=== PATIENT | female | born 1960 | race Caucasian/White ===

== ENCOUNTER 2016-09-02 15:39 | Emergency (ER) | payer BC ==
[2016-09-02] MEDS ORDERED: Sodium Chloride 0.9% 10 ML Syringe FLUSH PRN ×2 (15:56)
[2016-09-02] MEDS ORDERED: LORazepam 2 MG/ML MDV IVPUSH ONE (15:59)
--- NOTE | 2016-09-02 16:14 | EDM.PDOC ---
ED HPI NEURO - General Chief Complaint: Neuro Symptoms/Deficits Stated Complaint: SLURRED SPEECH,MEMORY LOSS Time Seen by Provider: 09/02/16 15:43 Source: Reports: Patient, Family, Old records, RN notes reviewed History Limitations: Reports: No limitations - History of Present Illness INITIAL COMMENTS - FREE TEXT/NARRATIVE: 56-year-old female presents to the emergency department today with difficulty finding words and slurred speech, she has had a known history of this for about 6 months has had extensive workup including multiple consultations with neurology, MRI and EEG as well as CAT scans and blood work have been performed the diagnosis has been conclusive thus far current working diagnosis from neurology last note on, 07/31/2016 is that this is a stress related anxiety component recommending consultation at the [facility] which they have an appointment for a second opinion. At this time she is severely agitated words are clear however it's difficult for her to smooth speech and nonpressured review of systems cannot be obtained the majority of this is taken from family and chart review - Related Data Allergies/ADRs: Allergies Allergy/AdvReac Type Severity Reaction Status Date / Time amoxicillin trihydrate Allergy Dizziness Verified 09/02/16 15:48 [From Augmentin] Latex, Natural Rubber Allergy Rash Verified 09/02/16 15:48 potassium clavulanate Allergy Dizziness Verified 09/02/16 15:48 [From Augmentin] hydromorphone AdvReac Intermediate Itching Verified 09/02/16 15:48 Home Meds: Home Meds Cetirizine HCl [Zyrtec] 10 mg PO ASDIRECTED 03/22/13 [History] Fluticasone Propionate 60 gm SUPRIYA DAILY 03/22/13 [History] Vit D3/Folic Acid/B2/B6/B12 [Folgard Tablet] 1 each PO DAILY 03/22/13 [History] Vitamin B Complex & Vit C No.4 [Super B Complex] 150 mg ORAL.INH DAILY 10/02/14 [History] FLUoxetine [PROzac] 20 mg PO DAILY 09/16/15 [History] Levothyroxine [Synthroid] 50 mcg PO ACBREAKFAST 09/16/15 [History] buPROPion HCl [Wellbutrin Xl] 150 mg PO DAILY 09/16/15 [History] Past Medical History HEENT History: Reports: Allergic rhinitis Respiratory History: Reports: Sleep apnea Other Respiratory History: environmental. 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 Psychiatric History: Reports: Depression Endocrine/Metabolic History: Reports: Obesity/BMI 30+ - Past Surgical History GI Surgical History: Reports: Cholecystectomy, Colon, Other (see below) Other GI Surgeries/Procedures: large tumor removal from belly Female Surgical History: Reports: Breast biopsy, section, Oophorectomy, Salpingo-oophorectomy, Tubal ligation Other Female Surgeries/Procedures: right ooph Social & Family History - Tobacco Use Smoking Status *Q: Never Smoker Second Hand Smoke Exposure: No - Alcohol Use Days Per Week of Alcohol Use: 0 - Recreational Drug Use Recreational Drug Use: No ED ROS GENERAL - Review of Systems Review Of Systems: Unable To Obtain ED EXAM, NEURO - Physical Exam Exam: See Below Text/Narrative:: General: Anxious female with pressured speech difficulty getting words out but when they do they are clear, alert and oriented x3 HEENT: head is atraumatic normocephalic, eyes pupils equal round reactive to light, sclera clear no conjunctivitis appreciated. Ears tympanic membranes clear and waite landmarks and light reflex are present bilaterally canals are clear. Nose no septal deviation, nares are clear, no blood present. Mouth mucosa is moist and pink no erythema or exudate noted in soft palate, tongue is midline uvula is midline , dentition is intact. Neck: Supple no thyromegaly no tracheal deviation. Nodes: Cervical nodes subclavicular nodes nontender no palpable lymphadenopathy noted. Lungs: clear to auscultation bilaterally with symmetrical respirations, no adventitious noise appreciated. CV: Regular rate and rhythm S1 and S2 appreciated no murmurs rubs or gallops noted. Abdomen: Soft, nontender, no palpable masses or organomegaly appreciated, no distention no guarding bowel sounds are present, . Neuro: Cranial nerves II through XII grossly intact moves all extremities without difficulty Skin: Warm and dry, intact Extremities: No lower extremity edema appreciated, Course - Vital Signs Last Recorded V/S: Last Vital Signs Temp 97.6 F 09/02/16 15:40 Pulse 110 H 09/02/16 16:40 Resp 16 09/02/16 16:20 BP 129/91 H 09/02/16 16:40 Pulse Ox 98 09/02/16 16:40 - Orders/Labs/Meds Orders: Active Orders 24 hr Category Date Time Status EKG Documentation Completion [RC] ASDIRECTED Care 09/02/16 15:58 Active Peripheral IV Care [RC] . DIRECTED Care 09/02/16 15:57 Active DRUG SCREEN, URINE [URCHEM] Stat Lab 09/02/16 15:59 Uncollected UA W/MICROSCOPIC [URIN] Urgent Lab 09/02/16 15:56 Uncollected Sodium Chloride 0.9% [Saline Flush] Med 09/02/16 15:56 Active 10 ml FLUSH ASDIRECTED PRN Sodium Chloride 0.9% [Saline Flush] Med 09/02/16 15:56 Active 10 ml FLUSH ASDIRECTED PRN Peripheral IV Insertion Adult [OM.PC] Urgent Oth 09/02/16 15:56 Ordered EKG 12 Lead [EK] Urgent Ther 09/02/16 15:56 Ordered Medication Orders Sodium Chloride (Saline Flush) 10 ml FLUSH ASDIRECTED PRN PRN Reason: Keep Vein Open Last Admin: 09/02/16 16:14 Dose: 10 ml Sodium Chloride (Saline Flush) 10 ml FLUSH ASDIRECTED PRN PRN Reason: Keep Vein Open Last Admin: 09/02/16 16:14 Dose: 10 ml Labs: Laboratory Tests 09/02/16 09/02/16 09/02/16 Range/Units 16:05 16:05 16:05 WBC 7.7 (4.5-11.0) K/uL RBC 4.34 (3.30-5.50) M/uL Hgb 15.7 H D (12.0-15.0) g/dL Hct 44.9 (36.0-48.0) % MCV 104 H (80-98) fL MCH 36 H (27-31) pg MCHC 35 (32-36) % Plt Count 296 (150-400) K/uL Neut % (Auto) 55 (36-66) % Lymph % (Auto) 33 (24-44) % [place] % (Auto) 12 H (2-6) % Eos % (Auto) 1 L (2-4) % Baso % (Auto) 1 (0-1) % PT 11.0 (9.5-12.0) sec INR 1.04 (0.80-1.20) Sodium 145 (140-148) mmol/L Potassium 4.0 (3.6-5.2) mmol/L Chloride 108 (100-108) mmol/L Carbon Dioxide 12 L (21-32) mmol/L Anion Gap 29.0 H (5.0-14.0) mmol/L BUN 7 (7-18) mg/dL Creatinine 0.9 (0.6-1.0) mg/dL Est Cr Clr Drug Dosing 52.10 mL/min Estimated GFR (MDRD) > 60 (>60) Glucose 85 (74-106) mg/dL Calcium 9.0 (8.5-10.1) mg/dL Total Bilirubin 1.2 H D (0.2-1.0) mg/dL AST 50 H (15-37) U/L ALT 99 H (12-78) U/L Alkaline Phosphatase 83 (46-116) U/L Total Protein 8.3 H (6.4-8.2) g/dL Albumin 4.1 (3.4-5.0) g/dL Globulin 4.2 H (2.3-3.5) g/dL Albumin/Globulin Ratio 1.0 L (1.2-2.2) Meds: Medications Generic Name Dose Route Start Last Admin Trade Name Freq PRN Reason Stop Dose Admin Sodium Chloride 10 ml 09/02/16 15:56 09/02/16 16:14 Saline Flush FLUSH 10 ml ASDIRECTED PRN Administration Keep Vein Open Sodium Chloride 10 ml 09/02/16 15:56 09/02/16 16:14 Saline Flush FLUSH 10 ml ASDIRECTED PRN Administration Keep Vein Open Discontinued Medications Generic Name Dose Route Start Last Admin Trade Name Freq PRN Reason Stop Dose Admin Lorazepam 1 mg 09/02/16 15:59 09/02/16 16:13 Ativan IVPUSH 09/02/16 16:00 1 mg ONETIME ONE Administration Departure - Departure Time of Disposition: 17:53 Disposition: Home, Self-Care 01 Condition: fair Clinical Impression: Slurred speech Forms: ED Department Discharge Additional Instructions: Use Ativan as needed for symptomatic relief, please keep your appointment at the [facility] for second opinion from neurology, call or return to the emergency department worsening of symptoms - My Orders Last 24 Hours: My Active Orders 09/02/16 15:56 UA W/MICROSCOPIC [URIN] Urgent Sodium Chloride 0.9% [Saline Flush] 10 ml FLUSH ASDIRECTED PRN Sodium Chloride 0.9% [Saline Flush] 10 ml FLUSH ASDIRECTED PRN Peripheral IV Insertion Adult [OM.PC] Urgent EKG 12 Lead [EK] Urgent 09/02/16 15:57 Peripheral IV Care [RC] . DIRECTED 09/02/16 15:58 EKG Documentation Completion [RC] ASDIRECTED 09/02/16 15:59 DRUG SCREEN, URINE [URCHEM] Stat - Assessment/Plan Last 24 Hours: My Active Orders 09/02/16 15:56 UA W/MICROSCOPIC [URIN] Urgent Sodium Chloride 0.9% [Saline Flush] 10 ml FLUSH ASDIRECTED PRN Sodium Chloride 0.9% [Saline Flush] 10 ml FLUSH ASDIRECTED PRN Peripheral IV Insertion Adult [OM.PC] Urgent EKG 12 Lead [EK] Urgent 09/02/16 15:57 Peripheral IV Care [RC] . DIRECTED 09/02/16 15:58 EKG Documentation Completion [RC] ASDIRECTED 09/02/16 15:59 DRUG SCREEN, URINE [URCHEM] Stat Plan: Assessment Acuity = chronic Site and laterality = episodes of slurred speech Etiology = unclear etiology possibly related to anxiety component Manifestations = none Location of injury = home Lab values = CBC unremarkable, total bilirubin elevated 1.2 consistent hyperbilirubinemia AST elevated at 50 ALT elevated at 99 consistent elevated liver enzymes, EKG demonstrates a normal sinus rhythm Plan I did review lab work with her elevated liver enzymes are not new she had good relief with 1 mg Ativan provided I did write a prescription for total of 10 tablets she does admit to being under a lot of stress with recent move from her home, she does have followup appointment with neurology for second opinion at the [facility] Patient was in agreement with the plan all questions were answered, they were instructed to return to the emergency department or call for worsening symptoms. This note was dictated using Nubli voice recognition software please call with any questions.
[2016-09-02 17:03] VITALS: BP 129/91
== END 2016-09-02 18:10 | disposition home or self-care (01) ==
LOC: JP.ED 15:39
DX: R47.81 Slurred speech (principal); E66.9 Obesity, unspecified; Z68.32 Body mass index [BMI] 32.0-32.9, adult; Z90.49 Acquired absence of other specified parts of digestive tract; Z98.51 Tubal ligation status; Z98.890 Other specified postprocedural states; Z79.899 Other long term (current) drug therapy; Z88.1 Allergy status to other antibiotic agents; Z88.5 Allergy status to narcotic agent; Z91.040 Latex allergy status
CPT/HCPCS: 36415; 80053; 85025; 85610; 93005; 96374; 99285; J2060; J7050

== ENCOUNTER 2016-10-12 06:23 | Inpatient (IN) | payer BC ==
[2016-10-12] MEDS ORDERED: fentaNYL 25 MCG/HR Transdermal Patch TRDERM SCH (07:00)
[2016-10-12] MEDS: Dextrose 5%-Lactated Ringers 1,000 ML IV SCH ×2 (07:40→22:20)
[2016-10-12] MEDS ORDERED: Naloxone 0.4 MG/ML SDV IVPUSH PRN (08:30)
[2016-10-12] MEDS ORDERED: HYDROmorphone/Normal Saline 15 MG/30 ML PCA IV PRN (08:30)
[2016-10-12] MEDS ORDERED: Meropenem 500 MG SDV ONE (08:47)
[2016-10-12] MEDS ORDERED: Rocuronium 50 MG/5 ML Vial ONE ×2 (09:18→12:17)
[2016-10-12] MEDS ORDERED: Dexamethasone 4 MG/ML SDV ONE (09:18)
[2016-10-12] MEDS ORDERED: Neostigmine Methylsulfate 1 MG/ML 5 ML Syringe ONE (09:18)
[2016-10-12] MEDS ORDERED: Ondansetron 4 MG/2 ML SDV ONE (09:18)
[2016-10-12] MEDS ORDERED: fentaNYL 250 MCG/5 ML SDV ONE ×2 (09:18→11:39)
[2016-10-12] MEDS ORDERED: Midazolam 1 MG/ML 2 ML SDV ONE (09:18)
[2016-10-12] MEDS ORDERED: Propofol 200 MG/20 ML SDV ONE (09:18)
[2016-10-12] MEDS ORDERED: Succinylcholine/Normal Saline 200 MG/10 ML Syringe ONE (09:18)
[2016-10-12] MEDS ORDERED: Povidone-Iodine 10% Soln 118.25 ML Bottle ONE (09:22)
[2016-10-12] MEDS: Scopolamine 1.5 MG Transdermal Patch TRDERM SCH (10:23)
[2016-10-12] MEDS: cefOXitin 2 GM in Sodium Chloride 0.9% 50 ML IV ONE ×2 (10:23→15:14)
[2016-10-12] MEDS ORDERED: Lactated Ringers 1,000 ML ONE (11:02)
[2016-10-12] MEDS ORDERED: Linezolid 200 MG/100 ML Bag IRR ONE ×2 (11:11→11:15)
[2016-10-12] MEDS ORDERED: hydrOXYzine HCl 50 MG/ML SDV IM PRN (15:01)
[2016-10-12] MEDS ORDERED: hydrOXYzine HCl 25 MG Tab PO PRN (15:01)
[2016-10-12] MEDS: Cyclobenzaprine 10 MG Tab PO PRN (15:13)
[2016-10-12] MEDS ORDERED: Ondansetron 4 MG/2 ML SDV IVPUSH PRN (15:27)
[2016-10-12] MEDS ORDERED: Cetirizine 10 MG Tab PO ONE (16:30)
[2016-10-12] MEDS: Magnesium Sulfate/Water 2 GM in Premix Bag 1 BAG IV SCH ×2 (16:42→22:21)
[2016-10-12] MEDS: ceFAZolin 2 GM in Sodium Chloride 0.9% 50 ML IV SCH ×2 (16:42→23:40)
[2016-10-12] MEDS: diphenhydrAMINE 50 MG/ML SDV IVPUSH PRN (20:21)
[2016-10-13] MEDS: diphenhydrAMINE 50 MG/ML SDV IVPUSH PRN ×3 (01:44→14:09)
[2016-10-13] MEDS: Magnesium Sulfate/Water 2 GM in Premix Bag 1 BAG IV SCH ×4 (04:44→22:25)
[2016-10-13] MEDS: Dextrose 5%-Lactated Ringers 1,000 ML IV SCH ×2 (05:29→13:59)
[2016-10-13] MEDS: Cyclobenzaprine 10 MG Tab PO PRN ×2 (07:05→15:59)
[2016-10-13] MEDS: Pantoprazole 40 MG Tab.CR PO SCH (07:18)
[2016-10-13] MEDS: Levothyroxine 75 MCG Tab PO SCH (07:18)
[2016-10-13] MEDS: ceFAZolin 2 GM in Sodium Chloride 0.9% 50 ML IV SCH (07:33)
--- NOTE | 2016-10-13 08:20 | PN ---
DATE OF SERVICE: 10/13/2016 SUBJECTIVE: Beatrice is postop day #1. She states her pain is controlled. She is having muscle spasms in her left upper quadrant. Siu was discontinued. She has itching all over without rash. REVIEW OF SYSTEMS: Remainder of review of systems negative for any pertinent positives and negatives. OBJECTIVE: GENERAL: Beatrice is a 56-year-old female. She is alert and orientated. VITAL SIGNS: TPR is 98.1, 118, 14, blood pressure 114/75. HEENT: Negative. NECK: Supple. HEART: Regular rate and rhythm. LUNGS: Clear. ABDOMEN: Dressings dry and intact. Abdominal binder is on. EXTREMITIES: Without peripheral edema. ASSESSMENT: 1. 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 2. Excision of nodule gastric mesentry and placement of Interceed mesh for recurrent desmoid tumor, gastric mesentery, and probable new primary desmoid tumor mesenteric layer, left upper abdominal wall. Size of Interceed mesh, 5 inches x 6 inches. Date of surgery 10/12/2016. PLAN: 1. Step-4 gastric bypass diet. 2. Decrease IV to 100 mL per hour. 3. Dressing off, may shower. 4. 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 Rx Dilaudid 2 mg 1 to 2 q.4 hours p.r.n. pain, p.o. Lomotil, and KCl was restarted per her home medications. 5. We will evaluate p.r.n. or in a.m. Katie Ann PA-C /[id number]
[2016-10-13] MEDS ORDERED: FENTANYL PATCH CHECK TOP SCH ×2 (09:00)
[2016-10-13] MEDS ORDERED: POTASSIUM CHLORIDE 40 MEQ PO SCH (09:00)
[2016-10-13] MEDS: Potassium Chloride 20 MEQ Tab.ER PO SCH (09:32)
[2016-10-13] MEDS: FLUoxetine 20 MG Cap PO SCH (09:32)
[2016-10-13] MEDS: Cetirizine 10 MG Tab PO SCH (09:33)
[2016-10-13] MEDS: FENTANYL PATCH CHECK TOP SCH ×2 (09:34→20:00)
[2016-10-13] MEDS: SCOPALAMINE PATCH CHECK TOP SCH (09:35)
[2016-10-13] MEDS: Atropine/Diphenoxylate 0.025-2.5 MG Tab PO SCH ×3 (09:37→20:00)
[2016-10-13] MEDS: HYDROmorphone 2 MG Tab PO PRN ×3 (09:41→17:48)
[2016-10-14] MEDS: Dextrose 5%-Lactated Ringers 1,000 ML IV SCH ×3 (00:07→20:39)
[2016-10-14] MEDS: diphenhydrAMINE 50 MG/ML SDV IVPUSH PRN (03:45)
[2016-10-14] MEDS: HYDROmorphone 2 MG Tab PO PRN ×3 (03:45→16:02)
[2016-10-14] MEDS: Magnesium Sulfate/Water 2 GM in Premix Bag 1 BAG IV SCH ×4 (04:28→22:15)
[2016-10-14] MEDS: Pantoprazole 40 MG Tab.CR PO SCH (07:17)
[2016-10-14] MEDS: Levothyroxine 75 MCG Tab PO SCH (07:17)
[2016-10-14] MEDS: Amylase/Lipase/Protease 12,000 Unit Cap.CR PO SCH ×3 (08:13→16:49)
[2016-10-14] MEDS: FENTANYL PATCH CHECK TOP SCH ×2 (08:14→20:41)
[2016-10-14] MEDS: Potassium Chloride 20 MEQ Tab.ER PO SCH (08:14)
[2016-10-14] MEDS: Atropine/Diphenoxylate 0.025-2.5 MG Tab PO SCH ×3 (08:14→20:41)
[2016-10-14] MEDS: SCOPALAMINE PATCH CHECK TOP SCH (08:15)
[2016-10-14] MEDS: Cetirizine 10 MG Tab PO SCH (08:15)
[2016-10-14] MEDS: FLUoxetine 20 MG Cap PO SCH (08:15)
--- NOTE | 2016-10-14 09:04 | PN ---
DATE OF SERVICE: 10/14/2016 SUBJECTIVE: Beatrice has had some tachycardia. Temp max 99.6. Pain has been controlled. She did have some urinary retention and Siu was replaced at 7 p.m. She has been up ambulating. Occasional confusion secondary to narcotic medications. REVIEW OF SYSTEMS: Remainder of review of systems was negative for any pertinent positives and negatives. OBJECTIVE: GENERAL: Beatrice Moody is a pleasant 56-year-old female. VITAL SIGNS: TPR is 99.4, 110, 16, blood pressure is 109/70 and recheck 155/89. HEENT: Negative. NECK: Supple. HEART: Apically, when first checked, her pulse rate was 180 to 200. It was checked for greater than a minute. Apical radial pulse was the same, it did go down to 113 to 114. Telemetry is on. She did have tachy initially with some PVCs and then it completely cleared where she remained tachycardic in the 110s to 114s. LUNGS: Clear. ABDOMEN: Dressings dry and intact. Siu catheter intact. She has had a total out of 1560 of a clear magdy urine. EXTREMITIES: SCDs are on. ASSESSMENT: 1. 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 2. Excision of nodule, gastric mesentery, and placement of Interceed mesh for recurrent desmoid tumor, gastric mesentery, and probable new primary desmoid tumor mesenteric layer, left upper abdominal wall. Size of Interceed mesh, 5 inches x 6 inches. Date of surgery 10/12/2016. PLAN: 1. Dressing off and may shower. 2. Telemetry for postop tachycardia, rule out any arrhythmia. 3. Discontinue Siu. 4. Continue good pulmonary toilet. 5. We will evaluate p.r.n. or in a.m. Katie Ann PA-C /[id number]
[2016-10-14] MEDS: Cyclobenzaprine 10 MG Tab PO PRN ×2 (11:41→17:14)
[2016-10-14] MEDS ORDERED: Dextrose 5%-Lactated Ringers 1,000 ML IV SCH (21:15)
[2016-10-14] MEDS: Acetaminophen 325 MG Tab PO SCH (21:46)
[2016-10-15] MEDS: Acetaminophen 325 MG Tab PO SCH ×2 (03:48→09:01)
[2016-10-15] MEDS: Magnesium Sulfate/Water 2 GM in Premix Bag 1 BAG IV SCH ×3 (04:38→11:05)
[2016-10-15] MEDS: Levothyroxine 75 MCG Tab PO SCH (07:17)
[2016-10-15] MEDS: Pantoprazole 40 MG Tab.CR PO SCH (07:17)
[2016-10-15] MEDS ORDERED: Magnesium Hydroxide 400 MG/5 ML Susp 30 ML Cup PO PRN (07:28)
[2016-10-15] MEDS: Cyclobenzaprine 10 MG Tab PO PRN (07:33)
[2016-10-15 07:40] VITALS: BP 111/72
[2016-10-15] MEDS: Potassium Chloride 20 MEQ Tab.ER PO SCH (08:58)
[2016-10-15] MEDS: Amylase/Lipase/Protease 12,000 Unit Cap.CR PO SCH (08:58)
[2016-10-15] MEDS: SCOPALAMINE PATCH CHECK TOP SCH (08:59)
[2016-10-15] MEDS: Atropine/Diphenoxylate 0.025-2.5 MG Tab PO SCH (08:59)
[2016-10-15] MEDS: Cetirizine 10 MG Tab PO SCH (09:01)
[2016-10-15] MEDS: FLUoxetine 20 MG Cap PO SCH (09:01)
[2016-10-15] MEDS: Scopolamine 1.5 MG Transdermal Patch TRDERM SCH (11:17)
--- NOTE | 2016-10-16 14:23 | DISCH ---
ADMISSION DIAGNOSES: Desmoid tumor of abdomen, short bowel syndrome, postoperative malabsorption, chronic headaches, depression, anxiety, sleep apnea, on CPAP, psychogenic nonepileptic seizure. DISCHARGE DIAGNOSES: 1. 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 2. Excision of nodule, gastric mesentery, and placement of Interceed mesh for recurrent desmoid tumor, gastric mesentery, and probable new desmoid tumor mesenteric layer, left upper abdominal wall. Size of Interceed mesh 5 inches x 6 inches. Date of surgery 10/12/2016. HISTORY: Beatrice is a 56-year-old female who had history of a desmoid tumor approximately 11 months ago. She had recurrence of the abdominal wall mass. After preoperative evaluation and discussion of possible risks and possible complications, she wished to proceed for surgical procedure. HOSPITAL COURSE: Beatrice had her surgery on 10/12/2016. She had no operative complications. On postop day #1, she was started on oral pain medication, irregular diet. On postop day #2, her activity was good, her appetite did start to return, and her vital signs remained stable. She did have one episode of tachycardia with rare PVCs and her fentanyl patch was discontinued and her pulse returned to normal limits. On postop day #3, her activity was good. Her pain was well managed. Vital signs stable and she was able to be discharged to home. PHYSICAL EXAMINATION: GENERAL: Beatrice is fairly 56-year-old female. She is alert, orientated. VITAL SIGNS: Height 5 feet 1 inch. Weight is 147. TPR is 98.2, 99, 18. Blood pressure is 111/72. HEENT: Negative. NECK: Supple. HEART: Regular rate and rhythm. LUNGS: Clear. ABDOMEN: Rizwan in place. In the superior part of the incision, she does have a ping-pong ball sized raised area that is firm. It is normal part of her anatomy and the abdomen is otherwise soft, minimally tender which would be expected. EXTREMITIES: Without peripheral edema. DISPOSITION: Discharged to home. CONDITION: Stable and improving. FOLLOWUP APPOINTMENT: Jermaine Lowry MD on 10/21/2016 at 9:00 a.m. HOME MEDICATIONS: Tylenol 650 mg q.6 hours scheduled for 2 weeks, Flexeril 10 mg q.8 hours p.r.n. muscle spasms #30, Dilaudid 2 mg 1 to 2 every 4 hours p.r.n. pain #30, fluoxetine 20 mg oral daily, levothyroxine 75 mcg oral before breakfast. Milk of magnesia 30 mL, two were sent home with patient to take 1 daily p.r.n. constipation. Creon one each oral 3 times daily, Zyrtec 10 mg oral daily. For allergies, vitamin B12 of 1000 mcg sublingual daily. Vitamin B12 of 500 mcg sublingual daily, Lomotil 1 tablet oral 3 times daily, probiotic one tablet oral daily, B-complex 150 mg oral daily, vitamin D 1 daily, potassium chloride 40 mEq oral daily, bupropion 75 mg oral twice daily. DIET AFTER DISCHARGE: Usual diet as tolerated. Drink 8 to 10 glasses of water a day. ACTIVITIES: No lifting greater than 10 pounds for 6 weeks. Other activity, walk inside your home 6 times daily, short distances. Driving, do not drive on pain medication. Shower bathing, may shower. Notify provider of fever, increased pain, nausea, or vomiting. Wound incision care, keep site clean and dry, wear abdominal binder for 6 weeks and then as tolerated. Special instruction; use incentive spirometer 10 times every hour while awake.
--- NOTE | 2016-11-04 07:34 | OR ---
DATE OF PROCEDURE: 10/12/2016 PREOPERATIVE DIAGNOSES: 1. 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 2. Recurrent desmoid tumor, gastric mesentery. 3. Possible tiny area of recurrent desmoid tumor involving nodular tissue, inferior aspect of the incision. OPERATIVE PROCEDURE: 1. Radical resection of abdominal wall desmoid left upper quadrant abdominal wall with mesh repair augmented by partial component separation of abdominal wall (13930). 2. Excision of combined nodules involving gastric mesentery (18072). 3. Excision of peritoneal nodule underlying inferior extent of incision (73136). 4. Placement of Interceed mesh to displace small bowel and other viscera away from pelvic and abdominal wall (13592). ANESTHESIA: General. CAN TECHNICIAN: Katie Ann PA-C. INDICATION: This is a 56-year-old female, a little over a year status post radical resection of the desmoid tumor involving small bowel mesentery with a small bowel resection. The patient is accommodated for GI tract satisfactorily at this point and recent followup exam showed a new rapidly enlarging mass in the left upper quadrant. A CT scan of this showed the mass to be lateral to the left rectus muscle and interestingly in a plane not at all violated by the original operation indicating this may very well be new primary desmoid tumor. Biopsies were obtained, which were consistent with desmoid tumor. The plan is to proceed with planned local excision of that area, but most likely mesh repair and augmented in all likelihood with partial component separation procedure is planned. In addition we'll do a general exploration to rule out any additional possible recurrent tumors. Potential risks including bleeding, infection, injury to underlying viscera, possible need for additional bowel resection, need for long-term IV hyperalimentation. Possible recurrence of the problem overtime as well as possibility of cardiopulmonary, septic, or hemorrhagic complications leading to and the patient wishes to proceed. DETAILS OF PROCEDURE: The patient was taken to the operating room. After general endotracheal anesthesia was induced, a Siu catheter was inserted and the abdomen was prepped and draped. Initially, lifts of skin with the long axis in vertical orientation centered over the palpable mass was made. This included the tract of the biopsy site, which amounted to Al-Cut needle biopsies with entering skin just inferior to the mass. This was carried down through the skin and subcutaneous tissue and then through the fascia and musculature directly into the peritoneal cavity with care to avoid getting close to the palpable tumor. This specimen was then marked with some sutures for orientation by the staff for the pathologist and sent for frozen section. The margins on this appeared to be clear. On exploration, the patient was noted to have 2 nodular areas of more or less [id number] measuring 7 cm in total dimension on the portion of this up against the abdominal wall. Mostly suggestive of fat necrosis, where as the lower portion of the mass, it was located more within the gastric mesentery and entirely isolated within the gastric mesentery, was suggestive of a recurrent desmoid tumor. This area was excised by means of SOPHIE staplers along with Harmonic Scalpel and cautery, and this was then sent for frozen section as well. The suspicious nodule was grossly freed up in terms of margins, but did appear to be a desmoid tumor, where as the component up against abdominal wall which was with much closer margins appeared most likely to be fat necrosis. The area of slight concern was that of a tiny nodule located inferior aspect of the incision. This was resected with some additional abdominal wall fascia and overlying musculature along with the peritoneum obtaining a grossly clear margin inferiorly. This nodule measure around 2 mm in size. At this point, general exploration revealed no additional abnormalities. We were fortunate that there was no distal adhesions to the abdominal wall or the masses in this case, and to facilitate this once again being the case where re-exploration be required, Interceed mesh was placed across the area of incision lateral medially and then down toward the pelvis to displace the viscera away from the abdominal wall. Overlying this a Ventralight ST mesh measuring 5 x 6 inch was selected. This is an oval mesh which was placed with the long access in the vertical orientation at roughly 4 cm intervals along its circumference. 2-0 Vicryl sutures were placed on the polypropylene side of the mesh and was then soaked in antibiotic containing saline solution. Markers on the skin where the sutures would hold up to initially fix the mesh well away from the fascial defect were made and the sutures were then pulled up and tied thus suturing the mesh in position. To facilitate a less tense fascial muscular closure over the defect lateral to the incision the external oblique aponeurosis fascia was incised and this then allowed dissection of the medial mobilization of the external oblique muscle leaving otherwise intact internal oblique and transverse abdominis muscles in place. This then allowed primary closure of the incision with a #2 Vicryl stitch and it was fairly tight, but it seemed reasonable in terms of likelihood of a knot adhesing. Subcutaneous tissue was then approximated with 2 layers of 3 and 4 Vicryl stitch deep and the torrey for the skin. The focal sites where the sutures being pulled up were also closed with torrey. The patient was taken to the recovery room in satisfactory condition. There were no other complications. Physician diver assistant, Katie Ann, played an essential role in assisting in this case, helping to position the patient, retract structures as needed, as well as cutting sutures and stapling when indicated. Her presence improved the patient's safety and decreased operative time. Jermaine Lowry MD /[id number]
== END 2016-10-15 11:21 | disposition home or self-care (01) | DRG 317 ==
LOC: JP.MS 06:23 → JP.SDS 06:23 → EDSTATUS 08:45 → JP.2SS 14:00
PROVIDERS: ADMIT Surgery; ATTEND Surgery
PROC: 0WBF0ZZ Excision of Abdominal Wall, Open Approach (ICD-10-PCS; principal; 2016-10-12)
PROC: 0JR Subcutaneous Tissue and Fascia, Replacement (ICD-10-PCS; 2016-10-12)
PROC: 0LR Tendons, Replacement (ICD-10-PCS; 2016-10-12)
PROC: 0DR Gastrointestinal System, Replacement (ICD-10-PCS; 2016-10-12)
DX: D48.1 Neoplasm of uncertain behavior of connective and other soft tissue (principal); R19.02 Left upper quadrant abdominal swelling, mass and lump; F32.9 Major depressive disorder, single episode, unspecified; R33.9 Retention of urine, unspecified; K91.2 Postsurgical malabsorption, not elsewhere classified; R51 Headache; F41.8 Other specified anxiety disorders; G47.30 Sleep apnea, unspecified; G40.89 Other seizures
CPT/HCPCS: 88305; 88309; 88331; 94762; A9270-GY; C1781; J0131; J0690; J0694; J1100; J1170; J1200; J2020; J2185; J2250; J2405; J2704; J3010; J3410; J3475; J7042; J7050; J7120

== ENCOUNTER 2016-10-19 21:00 | Emergency (ER) | payer BC ==
[2016-10-19] MEDS ORDERED: HYDROmorphone 1 MG/ML Syringe IVPUSH ONE (21:38)
[2016-10-19] MEDS ORDERED: LORazepam 2 MG/ML MDV IVPUSH ONE (21:38)
[2016-10-19] MEDS ORDERED: Sodium Chloride 0.9% 1,000 ML IV SCH (21:45)
--- NOTE | 2016-10-19 22:08 | EDM.PDOC ---
ED HPI GENERAL MEDICAL PROBLEM - General Chief Complaint: Abdominal Pain Stated Complaint: PAIN FROM SURGERY Time Seen by Provider: 10/19/16 21:15 Source of Information: Reports: Patient, Family History Limitations: Reports: No Limitations - History of Present Illness INITIAL COMMENTS - FREE TEXT/NARRATIVE: 56-year-old female who just recently received abdominal surgery was doing better and started to cut back on her Dilaudid and Flexeril but today developed cramping in her lower abdomen, became very anxious and started hyperventilating and arrived to the emergency room extremely uncomfortable. She felt better sitting on the toilet, lying down was uncomfortable. She had no nausea or vomiting. She did not feel she was having urinary retention. No shortness of breath. Onset: Sudden (Over the course of the last 3-4 hours) Severity: Moderate Associated Symptoms: Denies: Fever/Chills, Nausea/Vomiting, Shortness of Breath , Syncope Abdomen Pain Score (Numeric/FACES): 10 - Related Data Allergies Allergy/AdvReac Type Severity Reaction Status Date / Time amoxicillin trihydrate Allergy Dizziness Verified 10/19/16 21:05 [From Augmentin] Latex, Natural Rubber Allergy Rash Verified 10/19/16 21:05 potassium clavulanate Allergy Dizziness Verified 10/19/16 21:05 [From Augmentin] hydromorphone AdvReac Intermediate Itching Verified 10/19/16 21:05 Home Meds: Home Meds Cetirizine HCl [Zyrtec] 10 mg PO ASDIRECTED 03/22/13 [History] Vit D3/Folic Acid/B2/B6/B12 [Folgard Tablet] 1 each PO DAILY 03/22/13 [History] Vitamin B Complex & Vit C No.4 [Super B Complex] 150 mg PO DAILY 10/02/14 [ History] Levothyroxine [Synthroid] 75 mcg PO ACBREAKFAST 09/16/15 [History] buPROPion HCl [Wellbutrin Xl] 75 mg PO BID 09/16/15 [History] Amylase/Lipase/Protease [Creon DR 12,000 Units] 1 each PO TID 09/07/16 [History] Diphenoxylate HCl/Atropine [Lomotil] 1 tab PO TID 09/07/16 [History] Carpenter-3 Fatty Acids [Fish Oil] 300 mg PO DAILY 09/07/16 [History] Omeprazole 20 mg PO BIDAC 09/07/16 [History] Cyanocobalamin (Vitamin B-12) [Vitamin B-12] 1,000 mcg PO ASDIRECTED 09/30/16 [ History] Cyanocobalamin (Vitamin B12) [Vitamin B12] 500 mcg PO DAILY 09/30/16 [History] Magnesium Oxide 800 mg PO BID 09/30/16 [History] Potassium Chloride [K-Tab ER] 40 meq PO DAILY 09/30/16 [History] L.acidoph,Paracasei, B.lactis [Probiotic] 1 tab PO DAILY 10/09/16 [History] Multivitamin with Minerals [Multiple Vitamin] 1 tab PO DAILY 10/09/16 [History] Acetaminophen [Tylenol] 650 mg PO Q6H #100 tablet 10/15/16 [Rx] Cyclobenzaprine [Flexeril] 10 mg PO Q8H PRN #30 tablet 10/15/16 [Rx] FLUoxetine [PROzac] 20 mg PO DAILY cap 10/15/16 [Rx] HYDROmorphone [Dilaudid] 2 - 4 mg PO Q4H PRN #30 tablet 10/15/16 [Rx] Levothyroxine 75 mcg PO ACBREAKFAST tablet 10/15/16 [Rx] Magnesium Hydroxide [Milk of Magnesia] 30 ml PO DAILY PRN #0 cup 10/15/16 [Rx] Past Medical History HEENT History: Reports: Allergic Rhinitis, Impaired Vision Other HEENT History: wears glasses Cardiovascular History: Reports: Other (See Below) Other Cardiovascular History: low blood pressure Respiratory History: Reports: Sleep Apnea Other Respiratory History: environmental. 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 Psychiatric History: Reports: Depression Endocrine/Metabolic History: Reports: Hypothyroidism Hematologic History: Reports: B12 Deficiency Dermatologic History: Reports: Other (See Below) Other Dermatologic History: keloid - Infectious Disease History Infectious Disease History: Reports: Chicken Pox, Measles, Mumps - Past Surgical History HEENT Surgical History: Reports: Oral Surgery GI Surgical History: Reports: Cholecystectomy, Colon, EGD, Small Bowel, Other ( See Below) Other GI Surgeries/Procedures: Recent abdomenal surgery Female Surgical History: Reports: Breast Biopsy, Section, Oophorectomy, Salpingo-Oophorectomy, Tubal Ligation Social & Family History - Family History Family Medical History: Noncontributory Cardiac: Reports: CAD - Tobacco Use Smoking Status *Q: Never Smoker Second Hand Smoke Exposure: No - Caffeine Use Caffeine Use: Reports: Soda - Alcohol Use Days Per Week of Alcohol Use: 0 - Recreational Drug Use Recreational Drug Use: No ED ROS GENERAL - Review of Systems Review Of Systems: See Below Constitutional: Denies: Fever, Chills HEENT: Reports: No Symptoms Respiratory: Denies: Shortness of Breath GI/Abdominal: Reports: Abdominal Pain : Reports: Urgency Skin: Reports: Other (Incisions are healing nicely) ED EXAM, GI/ABD - Physical Exam Exam: See Below Exam Limited By: No Limitations General Appearance: Alert, Anxious, Moderate Distress Eyes: Bilateral: Normal Appearance Respiratory/Chest: No Respiratory Distress, Lungs Clear Cardiovascular: Regular Rate, Rhythm, Tachycardia GI/Abdominal: Normal Bowel Sounds, Soft, Other (Even light palpation of the left lower quadrant caused her significant discomfort. Incisions looked excellent.) Course - Vital Signs Last Recorded V/S: Last Vital Signs Temp 98.1 F 10/20/16 00:15 Pulse 122 H 10/20/16 00:15 Resp 18 10/20/16 00:15 BP 120/82 10/20/16 00:15 Pulse Ox 98 10/20/16 00:15 - Orders/Labs/Meds Orders: Active Orders 24 hr Category Date Time Status Urinary Catheter Assessment [RC] ASDIRECTED Care 10/19/16 21:39 Inactive Sodium Chloride 0.9% [Normal Saline] 1,000 ml Med 10/19/16 21:45 Active IV ASDIRECTED Medication Orders Sodium Chloride (Normal Saline) 1,000 mls @ 1,000 mls/hr IV ASDIRECTED KAREEN Last Admin: 10/19/16 21:58 Dose: 1,000 mls/hr Meds: Medications Generic Name Dose Route Start Last Admin Trade Name Freq PRN Reason Stop Dose Admin Sodium Chloride 1,000 mls @ 1,000 mls/hr 10/19/16 21:45 10/19/16 21:58 Normal Saline IV 1,000 mls/hr ASDIRECTED KAREEN Administration Discontinued Medications Generic Name Dose Route Start Last Admin Trade Name Srihdar MARIN Reason Stop Dose Admin Hydromorphone HCl 1 mg 10/19/16 21:38 10/19/16 22:00 Dilaudid IVPUSH 10/19/16 21:39 1 mg ONETIME ONE Administration Lorazepam 1 mg 10/19/16 21:38 10/19/16 21:59 Ativan IVPUSH 10/19/16 21:39 1 mg ONETIME ONE Administration - Re-Assessments/Exams Free Text/Narrative Re-Assessment/Exam: 10/19/16 22:07 An IV was started, patient was bolused with 1 L of normal saline. Given 1 mg of Dilaudid and 1 mg of Ativan IV. 10/19/16 23:45 After the medications the patient fell asleep, slept soundly for an hour and her symptoms resolved after 10 minutes of the medication. They did not recur and she was comfortable going home. Departure - Departure Time of Disposition: 00:16 Disposition: Home, Self-Care 01 Condition: good Clinical Impression: Hyperventilation syndrome Abdominal pain Qualifiers: Abdominal location: lower abdomen, unspecified Qualified Code(s): R10.30 - Lower abdominal pain, unspecified - Discharge Information Instructions: Abdominal Pain, Adult, Panic Attacks, [id number] Referrals: PCP,None [Primary Care Provider] - Forms: ED Department Discharge Care Plan Goals: Continue pushing fluids, take medications as prescribed and recheck as scheduled. Return anytime if worsening or concerns. - My Orders Last 24 Hours: My Active Orders 10/19/16 21:39 Urinary Catheter Assessment [RC] ASDIRECTED 10/19/16 21:45 Sodium Chloride 0.9% [Normal Saline] 1,000 ml IV ASDIRECTED - Assessment/Plan Last 24 Hours: My Active Orders 10/19/16 21:39 Urinary Catheter Assessment [RC] ASDIRECTED 10/19/16 21:45 Sodium Chloride 0.9% [Normal Saline] 1,000 ml IV ASDIRECTED
[2016-10-20 00:16] VITALS: BP 120/82
== END 2016-10-20 00:17 | disposition home or self-care (01) ==
LOC: JP.ED 21:00
DX: R10.30 Lower abdominal pain, unspecified (principal); F45.8 Other somatoform disorders; K21.9 Gastro-esophageal reflux disease without esophagitis; F32.9 Major depressive disorder, single episode, unspecified; E03.9 Hypothyroidism, unspecified; Z90.49 Acquired absence of other specified parts of digestive tract; Z88.1 Allergy status to other antibiotic agents; Z88.6 Allergy status to analgesic agent; Z88.8 Allergy status to other drugs, medicaments and biological substances; Z91.040 Latex allergy status; Z79.899 Other long term (current) drug therapy; Z98.890 Other specified postprocedural states
CPT/HCPCS: 96361; 96374; 96375; 99284; J1170; J2060; J7040

== ENCOUNTER 2017-06-27 03:44 | Emergency (ER) | payer BC ==
[2017-06-27 03:56] VITALS: BP 134/98
[2017-06-27] MEDS ORDERED: Ondansetron 4 MG/2 ML SDV IVPUSH ONE (04:06)
[2017-06-27] MEDS ORDERED: Ketorolac 30 MG/ML SDV IVPUSH ONE (04:06)
[2017-06-27] MEDS ORDERED: Sodium Chloride 0.9% 10 ML Syringe FLUSH PRN (04:07)
[2017-06-27] MEDS ORDERED: fentaNYL 100 MCG/2 ML SDV IVPUSH ONE (04:13)
[2017-06-27] MEDS ORDERED: Sodium Chloride 0.9% 1,000 ML IV SCH (04:15)
--- NOTE | 2017-06-27 04:17 | EDM.PDOC ---
ED HPI GENERAL MEDICAL PROBLEM - General Chief Complaint: Flank Pain Stated Complaint: KIDNEY STONES Time Seen by Provider: 06/27/17 04:06 Source of Information: Reports: Patient, Family, Old Records, RN Notes Reviewed History Limitations: Reports: No Limitations - History of Present Illness INITIAL COMMENTS - FREE TEXT/NARRATIVE: 57-year-old female presents emergency department day complaint of left flank pain she has a known history of nephrolithiasis has a 8 mm stone on the right causing mild hydronephrosis and a 12 mm stone on the left by CT scan 1 week prior, has established with urology with plan for retrieval of the stones sometime in the future. For this particular event pain, on within the last 12 hours she is nauseated and very uncomfortable Bilateral Flank Pain Score (Numeric/FACES): 8 - Related Data Allergies Allergy/AdvReac Type Severity Reaction Status Date / Time amoxicillin trihydrate Allergy Dizziness Verified 06/27/17 03:54 [From Augmentin] Latex, Natural Rubber Allergy Rash Verified 06/27/17 03:54 potassium clavulanate Allergy Dizziness Verified 06/27/17 03:54 [From Augmentin] hydromorphone AdvReac Intermediate Itching Verified 06/27/17 03:54 Home Meds: Home Meds Cetirizine HCl [Zyrtec] 10 mg PO ASDIRECTED 03/22/13 [History] Vit D3/Folic Acid/B2/B6/B12 [Folgard Tablet] 1 each PO DAILY 03/22/13 [History] Vitamin B Complex & Vit C No.4 [Super B Complex] 150 mg PO DAILY 10/02/14 [ History] Levothyroxine [Synthroid] 75 mcg PO ACBREAKFAST 09/16/15 [History] buPROPion HCl [Wellbutrin Xl] 75 mg PO BID 09/16/15 [History] Amylase/Lipase/Protease [Creon DR 12,000 Units] 1 each PO TID 09/07/16 [History] Diphenoxylate HCl/Atropine [Lomotil] 1 tab PO TID 09/07/16 [History] [place]-3 Fatty Acids [Fish Oil] 300 mg PO DAILY 09/07/16 [History] Omeprazole 20 mg PO BIDAC 09/07/16 [History] Cyanocobalamin (Vitamin B-12) [Vitamin B-12] 1,000 mcg PO ASDIRECTED 09/30/16 [ History] Cyanocobalamin (Vitamin B12) [Vitamin B12] 500 mcg PO DAILY 09/30/16 [History] Magnesium Oxide 800 mg PO BID 09/30/16 [History] Potassium Chloride [K-Tab ER] 40 meq PO DAILY 09/30/16 [History] L.acidoph,Paracasei, B.lactis [Probiotic] 1 tab PO DAILY 10/09/16 [History] Multivitamin with Minerals [Multiple Vitamin] 1 tab PO DAILY 10/09/16 [History] Acetaminophen [Tylenol] 650 mg PO Q6H #100 tablet 10/15/16 [Rx] Cyclobenzaprine [Flexeril] 10 mg PO Q8H PRN #30 tablet 10/15/16 [Rx] FLUoxetine [PROzac] 20 mg PO DAILY cap 10/15/16 [Rx] HYDROmorphone [Dilaudid] 2 - 4 mg PO Q4H PRN #30 tablet 10/15/16 [Rx] Magnesium Hydroxide [Milk of Magnesia] 30 ml PO DAILY PRN #0 cup 10/15/16 [Rx] Tamsulosin [Tamsulosin 24 Hr] 0.4 mg PO DAILY 06/27/17 [History] Past Medical History HEENT History: Reports: Allergic Rhinitis, Impaired Vision Other HEENT History: wears glasses Cardiovascular History: Reports: Other (See Below) Other Cardiovascular History: low blood pressure Respiratory History: Reports: Sleep Apnea Other Respiratory History: environmental. cpap Gastrointestinal History: Reports: GERD, Hemorrhoids, Other (See Below) Other Gastrointestinal History: short bowel SCIENCE CONSULTANT History: Reports: Musculoskeletal History: Reports: Other (See Below) Other Musculoskeletal History: muscle spasm of back Neurological History: Reports: Headaches, Chronic, Vertigo Other Neuro History: episodes of slur speaking and unable to organize thoughts. Psychiatric History: Reports: Depression Endocrine/Metabolic History: Reports: Hypothyroidism Hematologic History: Reports: B12 Deficiency Dermatologic History: Reports: Other (See Below) Other Dermatologic History: keloid - Infectious Disease History Infectious Disease History: Reports: Chicken Pox - Past Surgical History HEENT Surgical History: Reports: Oral Surgery GI Surgical History: Reports: Cholecystectomy, Colon, EGD, Small Bowel, Other ( See Below) Other GI Surgeries/Procedures: abdomenal surgery October 2016 Female Surgical History: Reports: Breast Biopsy, Section, Oophorectomy, Salpingo-Oophorectomy, Tubal Ligation Social & Family History - Family History Family Medical History: Noncontributory Cardiac: Reports: CAD - Tobacco Use Smoking Status *Q: Never Smoker Second Hand Smoke Exposure: No - Caffeine Use Caffeine Use: Reports: None - Alcohol Use Days Per Week of Alcohol Use: 0 - Recreational Drug Use Recreational Drug Use: No ED ROS GENERAL - Review of Systems Review Of Systems: See Below Constitutional: Reports: No Symptoms HEENT: Reports: No Symptoms Respiratory: Reports: No Symptoms Cardiovascular: Reports: No Symptoms GI/Abdominal: Reports: Abdominal Pain, Nausea : Reports: No Symptoms Musculoskeletal: Reports: No Symptoms Skin: Reports: No Symptoms Neurological: Reports: No Symptoms ED EXAM, RENAL/ - Physical Exam Exam: See Below Exam Limited By: No Limitations General Appearance: Alert, WD/WN, Moderate Distress Respiratory/Chest: No Respiratory Distress, Lungs Clear, Normal Breath Sounds, No Accessory Muscle Use Cardiovascular: Regular Rate, Rhythm, No Murmur GI/Abdominal: Soft, Tender (Tender left flank around into the pelvis) Back Exam: Normal Inspection, Full Range of Motion, CVA Tenderness (L). No: CVA Tenderness (R) Course - Vital Signs Last Recorded V/S: Last Vital Signs Temp 96 F 06/27/17 03:53 Pulse 78 06/27/17 03:53 Resp 20 06/27/17 03:53 BP 134/98 H 06/27/17 03:53 Pulse Ox 99 06/27/17 03:53 - Orders/Labs/Meds Orders: Active Orders 24 hr Category Date Time Status Peripheral IV Care [RC] . DIRECTED Care 06/27/17 04:07 Ordered UA W/MICROSCOPIC [URIN] Urgent Lab 06/27/17 04:11 Uncollected Sodium Chloride 0.9% [Normal Saline] 1,000 ml Med 06/27/17 04:15 Ordered IV ASDIRECTED Sodium Chloride 0.9% [Saline Flush] Med 06/27/17 04:07 Ordered 10 ml FLUSH ASDIRECTED PRN Peripheral IV Insertion Adult [OM.PC] Urgent Oth 06/27/17 04:07 Ordered Medication Orders Sodium Chloride (Normal Saline) 1,000 mls @ 999 mls/hr IV ASDIRECTED KAREEN Last Admin: 06/27/17 04:13 Dose: 999 mls/hr Sodium Chloride (Saline Flush) 10 ml FLUSH ASDIRECTED PRN PRN Reason: Keep Vein Open Last Admin: 06/27/17 04:20 Dose: 10 ml Labs: Laboratory Tests 06/27/17 06/27/17 Range/Units 04:40 04:40 WBC 9.9 (4.5-11.0) K/uL RBC 3.93 (3.30-5.50) M/uL Hgb 13.9 (12.0-15.0) g/dL Hct 38.8 (36.0-48.0) % MCV 99 H (80-98) fL MCH 35 H (27-31) pg MCHC 36 (32-36) % Plt Count 298 (150-400) K/uL Neut % (Auto) 78 H (36-66) % Lymph % (Auto) 14 L (24-44) % [place] % (Auto) 8 H (2-6) % Eos % (Auto) 0 L (2-4) % Baso % (Auto) 0 (0-1) % Sodium 143 (140-148) mmol/L Potassium 3.6 (3.6-5.2) mmol/L Chloride 106 (100-108) mmol/L Carbon Dioxide 23 (21-32) mmol/L Anion Gap 13.9 (5.0-14.0) mmol/L BUN 14 (7-18) mg/dL Creatinine 1.2 H (0.6-1.0) mg/dL Est Cr Clr Drug Dosing 38.56 mL/min Estimated GFR (MDRD) 46 L (>60) Glucose 140 H (74-106) mg/dL Calcium 8.5 (8.5-10.1) mg/dL Meds: Medications Generic Name Dose Route Start Last Admin Trade Name Freq PRN Reason Stop Dose Admin Sodium Chloride 1,000 mls @ 999 mls/hr 06/27/17 04:15 06/27/17 04:13 Normal Saline IV 999 mls/hr ASDIRECTED KAREEN Administration Sodium Chloride 10 ml 06/27/17 04:07 06/27/17 04:20 Saline Flush FLUSH 10 ml ASDIRECTED PRN Administration Keep Vein Open Discontinued Medications Generic Name Dose Route Start Last Admin Trade Name Freq PRN Reason Stop Dose Admin Fentanyl 100 mcg 06/27/17 04:13 Sublimaze IVPUSH 06/27/17 04:14 ONETIME ONE Ketorolac Tromethamine 30 mg 06/27/17 04:06 06/27/17 04:16 Toradol IVPUSH 06/27/17 04:07 30 mg ONETIME ONE Administration Ondansetron HCl 4 mg 06/27/17 04:06 06/27/17 04:14 Zofran IVPUSH 06/27/17 04:07 4 mg ONETIME ONE Administration Departure - Departure Time of Disposition: 05:28 Disposition: Home, Self-Care 01 Condition: Good Clinical Impression: Nephrolithiasis - Discharge Information Referrals: Shannan Bazzi PA [Primary Care Provider] - Forms: ED Department Discharge Additional Instructions: Use the ketorolac as needed for pain control, please contact your urologist for possible sooner follow-up call or return to emergency department with worsening of symptoms - My Orders Last 24 Hours: My Active Orders 06/27/17 04:07 Peripheral IV Care [RC] . DIRECTED Sodium Chloride 0.9% [Saline Flush] 10 ml FLUSH ASDIRECTED PRN Peripheral IV Insertion Adult [OM.PC] Urgent 06/27/17 04:11 UA W/MICROSCOPIC [URIN] Urgent 06/27/17 04:15 Sodium Chloride 0.9% [Normal Saline] 1,000 ml IV ASDIRECTED - Assessment/Plan Last 24 Hours: My Active Orders 06/27/17 04:07 Peripheral IV Care [RC] . DIRECTED Sodium Chloride 0.9% [Saline Flush] 10 ml FLUSH ASDIRECTED PRN Peripheral IV Insertion Adult [OM.PC] Urgent 06/27/17 04:11 UA W/MICROSCOPIC [URIN] Urgent 06/27/17 04:15 Sodium Chloride 0.9% [Normal Saline] 1,000 ml IV ASDIRECTED Plan: Assessment Acuity = acute Site and laterality = nephrolithiasis Etiology = unclear etiology Manifestations = left flank pain Location of injury = Home Lab values = CBC unremarkable, creatinine up to 1.2 consistent with acute renal failure stage GIII a Plan She had good relief with the Toradol injection prescription written for ketorolac 10 mg 1 tab by mouth 3 times a day when necessary total #20 she will contact urology for further evaluation but she is scheduled for surgical removal on July 08 This note was dictated using [employer] voice recognition software please call with any questions on syntax or germán.
== END 2017-06-27 05:36 | disposition home or self-care (01) ==
LOC: JP.ED 03:44
DX: N20.0 Calculus of kidney (principal); E03.9 Hypothyroidism, unspecified; Z91.040 Latex allergy status; Z88.8 Allergy status to other drugs, medicaments and biological substances; Z88.5 Allergy status to narcotic agent; Z79.899 Other long term (current) drug therapy; Z90.49 Acquired absence of other specified parts of digestive tract
CPT/HCPCS: 36415; 80048; 85025; 96361; 96374; 96375; 99284; J1885; J2405; J7040; J7050; J7030

== ENCOUNTER 2017-07-08 04:31 | Observation (INO) | payer BC ==
[2017-07-08] MEDS ORDERED: HYDROmorphone 1 MG/ML Syringe IVPUSH ONE (05:08)
[2017-07-08] MEDS ORDERED: Ketorolac 30 MG/ML SDV IVPUSH ONE (05:08)
[2017-07-08] MEDS ORDERED: Lactated Ringers 1,000 ML IV ONE (05:08)
--- NOTE | 2017-07-08 05:15 | EDM.PDOC ---
ED HPI GENERAL MEDICAL PROBLEM - General Chief Complaint: Gastrointestinal Problem Stated Complaint: SPASMS Time Seen by Provider: 07/08/17 05:08 Source of Information: Reports: Patient, Family, Old Records History Limitations: Reports: No Limitations - History of Present Illness INITIAL COMMENTS - FREE TEXT/NARRATIVE: 57 yo female with a pHx of recurrent urolithiasis had ureteral stents removed this past Wednesday for stones. Was doing well until tonight. Pain is intolerable. Has Dilaudid at home she is taking orally. 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 Is already on Lomotil tid for her frequent watery stools, but now even this is not making a difference. Having very large volume, frequent watery stools. Onset Date: 07/07/17 Duration: Hour(s):, Getting Worse Location: Reports: Abdomen (bladder and rectal spasms) Quality: Reports: Other (cramping) Severity: Severe Improves with: Reports: Medication (IV Dilaudid helps) Worsens with: Reports: Other (right before urinating or having a BM) Context: Reports: Other (Short bowel, kidney stones) Associated Symptoms: Reports: Other (Increasingly loose stools, acute on chronic ). Denies: Fever/Chills, Nausea/Vomiting Treatments INSTRUCTIONAL INTERVENTIONIST: Reports: Other (see below) (Oral dilaudid, B&O supp, Lomotil) Other Treatments INSTRUCTIONAL INTERVENTIONIST: Tramadol 50mg prior to coming. Rectal Pain Score (Numeric/FACES): 6 - Related Data Allergies Allergy/AdvReac Type Severity Reaction Status Date / Time amoxicillin trihydrate Allergy Dizziness Verified 07/08/17 04:53 [From Augmentin] Latex, Natural Rubber Allergy Rash Verified 07/08/17 04:53 potassium clavulanate Allergy Dizziness Verified 07/08/17 04:53 [From Augmentin] hydromorphone AdvReac Intermediate Itching Verified 07/08/17 04:53 Home Meds: Home Meds Cetirizine HCl [Zyrtec] 10 mg PO ASDIRECTED 03/22/13 [History] Vit D3/Folic Acid/B2/B6/B12 [Folgard Tablet] 1 each PO DAILY 03/22/13 [History] Vitamin B Complex & Vit C No.4 [Super B Complex] 150 mg PO DAILY 10/02/14 [ History] Levothyroxine [Synthroid] 75 mcg PO ACBREAKFAST 09/16/15 [History] buPROPion HCl [Wellbutrin Xl] 75 mg PO BID 09/16/15 [History] Amylase/Lipase/Protease [Creon DR 12,000 Units] 1 each PO TID 09/07/16 [History] Diphenoxylate HCl/Atropine [Lomotil] 1 tab PO TID PRN 09/07/16 [History] [place]-3 Fatty Acids [Fish Oil] 300 mg PO DAILY 09/07/16 [History] Omeprazole 20 mg PO BIDAC 09/07/16 [History] Cyanocobalamin (Vitamin B12) [Vitamin B12] 1,000 mcg PO DAILY 09/30/16 [History] Magnesium Oxide 1,200 mg PO BID 09/30/16 [History] Potassium Chloride [K-Tab ER] 40 meq PO DAILY 09/30/16 [History] L.acidoph,Paracasei, B.lactis [Probiotic] 1 tab PO DAILY 10/09/16 [History] Multivitamin with Minerals [Multiple Vitamin] 1 tab PO DAILY 10/09/16 [History] Acetaminophen [Tylenol] 650 mg PO Q6H #100 tablet 10/15/16 [Rx] Cyclobenzaprine [Flexeril] 10 mg PO Q8H PRN #30 tablet 10/15/16 [Rx] FLUoxetine [PROzac] 20 mg PO DAILY cap 10/15/16 [Rx] HYDROmorphone [Dilaudid] 2 - 4 mg PO Q4H PRN #30 tablet 10/15/16 [Rx] Magnesium Hydroxide [Milk of Magnesia] 30 ml PO DAILY PRN #0 cup 10/15/16 [Rx] Belladonna/Opium [Belladonna-Opium 16.2-30] 1 supp RECTAL Q6H PRN 07/08/17 [ History] Ibuprofen [Advil] 600 mg PO Q6H PRN 07/08/17 [History] Ondansetron [Zofran ODT] 4 mg PO Q4HR PRN 07/08/17 [History] oxyCODONE 5 mg PO Q4HR PRN 07/08/17 [History] traMADol [Ultram] 50 mg PO Q6H PRN 07/08/17 [History] Past Medical History HEENT History: Reports: Allergic Rhinitis, Impaired Vision Other HEENT History: wears glasses Cardiovascular History: Reports: Other (See Below) Other Cardiovascular History: low blood pressure Respiratory History: Reports: Sleep Apnea Other Respiratory History: environmental. 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 Psychiatric History: Reports: Depression Endocrine/Metabolic History: Reports: Hypothyroidism Hematologic History: Reports: B12 Deficiency Dermatologic History: Reports: Other (See Below) Other Dermatologic History: keloid - Infectious Disease History Infectious Disease History: Reports: Chicken Pox, Measles - Past Surgical History HEENT Surgical History: Reports: Oral Surgery GI Surgical History: Reports: Cholecystectomy, Colon, EGD, Small Bowel, Other ( See Below) Other GI Surgeries/Procedures: abdomenal surgery October 2016 Female Surgical History: Reports: Breast Biopsy, Section, Oophorectomy, Salpingo-Oophorectomy, Tubal Ligation, Ureteral Stent Other Female Surgeries/Procedures: Ureteral stents that were place were removed on wednesday. Social & Family History - Family History Family Medical History: Noncontributory Cardiac: Reports: CAD - Tobacco Use Smoking Status *Q: Never Smoker Second Hand Smoke Exposure: No - Caffeine Use Caffeine Use: Reports: Soda, Other Other Caffeine Use: diet pop - Alcohol Use Days Per Week of Alcohol Use: 0 - Recreational Drug Use Recreational Drug Use: No ED ROS GENERAL - Review of Systems Review Of Systems: See Below Constitutional: Reports: Weakness HEENT: Reports: No Symptoms Respiratory: Reports: No Symptoms Cardiovascular: Reports: No Symptoms GI/Abdominal: Reports: Abdominal Pain, Diarrhea, Stool Incontinence. Denies: Black Stool, Bloody Stool, Constipation, Distension, Flatus, Hematemesis, Hematochezia, Melena, Nausea, Vomiting : Reports: Urgency, Other (bladder spasms) Musculoskeletal: Reports: No Symptoms Skin: Reports: No Symptoms Neurological: Reports: No Symptoms ED EXAM, GI/ABD - Physical Exam Exam: See Below Exam Limited By: No Limitations General Appearance: Alert, WD/WN, Moderate Distress (at times), Thin Eyes: Bilateral: Normal Appearance Ears: Normal External Exam, Normal Canal Nose: Normal Inspection, Normal Mucosa, No Blood Throat/Mouth: Normal Inspection, Normal Lips, Normal Teeth, Normal Oropharynx, Normal Voice, No Airway Compromise Head: Atraumatic, Normocephalic Neck: Normal Inspection, Supple, Non-Tender Respiratory/Chest: No Respiratory Distress, Lungs Clear, Normal Breath Sounds, No Accessory Muscle Use Cardiovascular: Regular Rate, Rhythm, No Edema GI/Abdominal Exam: Soft, Tender (suprapubic), Abnormal Bowel Sounds (increased) Back Exam: Normal Inspection. No: CVA Tenderness (R), CVA Tenderness (L) Extremities: Normal Inspection, Normal Range of Motion, Non-Tender, No Pedal Edema Neurological: Alert, Oriented, CN II-XII Intact, Normal Cognition, No Motor/ Sensory Deficits Psychiatric: Normal Affect, Normal Mood Skin Exam: Warm, Dry, Intact, Normal Color, No Rash Lymphatic: No Adenopathy Course - Vital Signs Text/Narrative:: Dr. Moore called @ 0615h Last Recorded V/S: Last Vital Signs Temp 35.7 C 07/08/17 04:45 Pulse 80 07/08/17 04:45 Resp 28 H 07/08/17 04:45 BP 127/83 07/08/17 04:45 Pulse Ox 100 07/08/17 04:45 - Orders/Labs/Meds Orders: Active Orders 24 hr Category Date Time Status Lactated Ringers [Ringers, Lactated] 1,000 ml Med 07/08/17 05:08 Active IV BOLUS Medication Orders Lactated Ringer's (Ringers, Lactated) 1,000 mls @ 1,000 mls/hr IV BOLUS ONE Stop: 07/08/17 06:07 Last Admin: 07/08/17 05:15 Dose: 1,000 mls/hr Labs: Laboratory Tests 07/08/17 07/08/17 07/08/17 Range/Units 05:23 05:30 05:30 WBC 8.7 (4.5-11.0) K/uL RBC 3.51 (3.30-5.50) M/uL Hgb 12.4 (12.0-15.0) g/dL Hct 35.1 L (36.0-48.0) % MCV 100 H (80-98) fL MCH 35 H (27-31) pg MCHC 35 (32-36) % Plt Count 302 (150-400) K/uL Sodium 136 L (140-148) mmol/L Potassium 3.0 L (3.6-5.2) mmol/L Chloride 103 (100-108) mmol/L Carbon Dioxide 22 (21-32) mmol/L Anion Gap 14.0 (5.0-14.0) mmol/L BUN 8 (7-18) mg/dL Creatinine 0.9 (0.6-1.0) mg/dL Est Cr Clr Drug Dosing 51.41 mL/min Estimated GFR (MDRD) > 60 (>60) Glucose 97 (74-106) mg/dL Calcium 8.7 (8.5-10.1) mg/dL Magnesium 1.1 L (1.8-2.4) mg/dL Urine Color Yellow Urine Appearance Clear Urine pH 6.0 (4.5-8.0) Ur Specific [place] 1.010 (1.008-1.030) Urine Protein 30 H (NEGATIVE) mg/dL Urine Glucose (UA) Normal (NEGATIVE) mg/dL Urine Ketones Negative (NEGATIVE) mg/dL Urine Occult Blood Large (NEGATIVE) Urine Nitrite Negative (NEGATIVE) Urine Bilirubin Negative (NEGATIVE) Urine Urobilinogen Normal (NORMAL) mg/dL Ur Leukocyte Esterase Moderate (NEGATIVE) Urine RBC 0-5 (0-5) Urine WBC 5-10 H (0-5) Ur Epithelial Cells Few Amorphous Sediment Not seen Urine Bacteria Few Urine Mucus Not seen Meds: Medications Generic Name Dose Route Start Last Admin Trade Name Freq PRN Reason Stop Dose Admin Lactated Ringer's 1,000 mls @ 1,000 mls/hr 07/08/17 05:08 07/08/17 05:15 Ringers, Lactated IV 07/08/17 06:07 1,000 mls/hr BOLUS ONE Administration Discontinued Medications Generic Name Dose Route Start Last Admin Trade Name Freq PRN Reason Stop Dose Admin Hydromorphone HCl 1 mg 07/08/17 05:08 07/08/17 05:19 Dilaudid IVPUSH 07/08/17 05:09 1 mg ONETIME ONE Administration Ketorolac Tromethamine 30 mg 07/08/17 05:08 07/08/17 05:15 Toradol IVPUSH 07/08/17 05:09 30 mg ONETIME ONE Administration Departure - Departure Time of Disposition: 06:35 Disposition: Admitted As Inpatient 65 Condition: Fair Clinical Impression: Hypomagnesemia, Hypokalemia, Chronic diarrhea, Bladder spasms - Discharge Information Referrals: Shannan Bazzi PA [Primary Care Provider] - Forms: ED Department Discharge - My Orders Last 24 Hours: My Active Orders 07/08/17 05:08 Lactated Ringers [Ringers, Lactated] 1,000 ml IV BOLUS - Assessment/Plan Last 24 Hours: My Active Orders 07/08/17 05:08 Lactated Ringers [Ringers, Lactated] 1,000 ml IV BOLUS
[2017-07-08] MEDS ORDERED: NS + KCl 20mEq/L 1,000 ML IV SCH (06:15)
[2017-07-08] MEDS ORDERED: Magnesium Sulfate/Water 2 GM in Premix Bag 1 BAG IV ONE (06:15)
--- NOTE | 2017-07-08 08:30 | PCM.HP ---
H&P History of Present Illness - General Date of Service: 07/08/17 Admit Problem/Dx: Admission Diagnosis/Problem Admission Diagnosis/Problem Diarrhea Source of Information: Patient, Provider History Limitations: Reports: No Limitations - History of Present Illness Initial Comments - Free Text/Narative: Beatrice presents to the ER this morning with several episodes of watery diarrhea and lower abdominal cramping. Last week she had difficulty with large kidney stones and had them destroyed with ultrasound. It was suggested that she drink plenty of water to avoid recurrence of the stones. She was on antibiotics for 3 days but stopped these 2 days prior to presentation. For the past week she has had multiple episodes of watery diarrhea per day. She has been drinking plenty of water and has not had any vomiting but feels like every time she drinks she has a watery bowel movement. She reports moderate to severe crampy lower abdominal pain that radiates throughout her abdomen. She has tried several different pain medications at home without any relief. There is no obvious trigger to make things worse and it seems to come and go in waves. Appetite has been okay. She has not had any fevers at home. She has not had any sick contacts. No complaints of shortness of breath or chest pain. She does endorse chronic diarrhea with her short bowel syndrome but this has been much worse than usual. Workup in the emergency room revealed evidence for hypokalemia and hypomagnesemia. She had multiple watery bowel movements in the emergency room as well. She was admitted for hydration and electrolyte replacement. Rectal Pain Score (Numeric/FACES): 1 - Related Data Allergies/Adverse Reactions: Allergies Allergy/AdvReac Type Severity Reaction Status Date / Time amoxicillin trihydrate Allergy Dizziness Verified 07/08/17 04:53 [From Augmentin] Latex, Natural Rubber Allergy Rash Verified 07/08/17 04:53 potassium clavulanate Allergy Dizziness Verified 07/08/17 04:53 [From Augmentin] Home Medications: Home Meds Cetirizine HCl [Zyrtec] 10 mg PO ASDIRECTED 03/22/13 [History] Vit D3/Folic Acid/B2/B6/B12 [Folgard Tablet] 1 each PO DAILY 03/22/13 [History] Vitamin B Complex & Vit C No.4 [Super B Complex] 150 mg PO DAILY 10/02/14 [ History] Levothyroxine [Synthroid] 75 mcg PO ACBREAKFAST 09/16/15 [History] Amylase/Lipase/Protease [Creon DR 12,000 Units] 1 each PO TID 09/07/16 [History] Diphenoxylate HCl/Atropine [Lomotil] 1 tab PO TID PRN 09/07/16 [History] [place]-3 Fatty Acids [Fish Oil] 300 mg PO DAILY 09/07/16 [History] Omeprazole 20 mg PO BIDAC 09/07/16 [History] Cyanocobalamin (Vitamin B12) [Vitamin B12] 1,000 mcg PO DAILY 09/30/16 [History] Magnesium Oxide 1,200 mg PO BID 09/30/16 [History] Potassium Chloride [K-Tab ER] 40 meq PO DAILY 09/30/16 [History] L.acidoph,Paracasei, B.lactis [Probiotic] 1 tab PO DAILY 10/09/16 [History] Multivitamin with Minerals [Multiple Vitamin] 1 tab PO DAILY 10/09/16 [History] Acetaminophen [Tylenol] 650 mg PO Q6H #100 tablet 10/15/16 [Rx] Cyclobenzaprine [Flexeril] 10 mg PO Q8H PRN #30 tablet 10/15/16 [Rx] FLUoxetine [PROzac] 20 mg PO DAILY cap 10/15/16 [Rx] HYDROmorphone [Dilaudid] 2 - 4 mg PO Q4H PRN #30 tablet 10/15/16 [Rx] Magnesium Hydroxide [Milk of Magnesia] 30 ml PO DAILY PRN #0 cup 10/15/16 [Rx] Belladonna/Opium [Belladonna-Opium 16.2-30] 1 supp RECTAL Q6H PRN 07/08/17 [ History] Ibuprofen [Advil] 600 mg PO Q6H PRN 07/08/17 [History] Ondansetron [Zofran ODT] 4 mg PO Q4HR PRN 07/08/17 [History] buPROPion [Wellbutrin] 75 mg PO BID 07/08/17 [History] oxyCODONE 5 mg PO Q4HR PRN 07/08/17 [History] traMADol [Ultram] 50 mg PO Q6H PRN 07/08/17 [History] Past Medical History HEENT History: Reports: Allergic Rhinitis, Impaired Vision Other HEENT History: wears glasses Cardiovascular History: Reports: Other (See Below) Other Cardiovascular History: low blood pressure Respiratory History: Reports: Sleep Apnea Other Respiratory History: environmental. 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 Psychiatric History: Reports: Depression Endocrine/Metabolic History: Reports: Hypothyroidism Hematologic History: Reports: B12 Deficiency Dermatologic History: Reports: Other (See Below) Other Dermatologic History: keloid - Infectious Disease History Infectious Disease History: Reports: Chicken Pox, Measles - Past Surgical History HEENT Surgical History: Reports: Oral Surgery GI Surgical History: Reports: Cholecystectomy, Colon, EGD, Small Bowel, Other ( See Below) Other GI Surgeries/Procedures: abdomenal surgery October 2016 Female Surgical History: Reports: Breast Biopsy, Section, Oophorectomy, Salpingo-Oophorectomy, Tubal Ligation, Ureteral Stent Other Female Surgeries/Procedures: Ureteral stents that were place were removed on wednesday. Social & Family History - Family History Family Medical History: Noncontributory Cardiac: Reports: CAD - Tobacco Use Smoking Status *Q: Never Smoker Second Hand Smoke Exposure: No - Caffeine Use Caffeine Use: Reports: Soda, Other Other Caffeine Use: diet pop - Alcohol Use Days Per Week of Alcohol Use: 0 - Recreational Drug Use Recreational Drug Use: No H&P Review of Systems - Review of Systems: Review Of Systems: See Below Free Text/Narrative: A complete 12 point review of systems was obtained. Pertinent positives and negatives are noted in the history of present illness. All other systems were reviewed and were negative except as noted. Exam - Exam Exam: See Below - Vital Signs Vital Signs: Last Vital Signs Temp 36.2 C 07/08/17 07:07 Pulse 86 07/08/17 07:07 Resp 14 07/08/17 07:07 BP 119/74 07/08/17 07:07 Pulse Ox 97 07/08/17 07:07 Weight: 60.781 kg - Exam Quality Assessment: No: Supplemental Oxygen General: Alert, Oriented, Cooperative. No: Mild Distress HEENT: Conjunctiva Clear. No: Mucosa Moist & [place] (dry), Scleral Icterus Neck: Supple, Trachea Midline. No: Lymphadenopathy Lungs: Clear to Auscultation, Normal Respiratory Effort Cardiovascular: Regular Rate, Regular Rhythm. No: Systolic Murmur GI/Abdominal Exam: Normal Bowel Sounds, Soft, No Distention, Tender (moderate lower abdomen ) Back Exam: Normal Inspection, Full Range of Motion Extremities: No Pedal Edema. No: Increased Warmth Skin: Warm, Dry Neuro Extensive - Mental Status: Alert, Oriented x3, Nl Response to Commands Neuro Extensive - Motor, Sensory, Reflexes: CN II-XII Intact. No: Dysarthria, Abnormal Motor, Tremor Psychiatric: Alert, Normal Affect - Patient Data Lab Results Last 24 hrs: Laboratory Results - last 24 hr 07/08/17 07/08/17 07/08/17 Range/Units 05:23 05:30 05:30 WBC 8.7 (4.5-11.0) K/uL RBC 3.51 (3.30-5.50) M/uL Hgb 12.4 (12.0-15.0) g/dL Hct 35.1 L (36.0-48.0) % MCV 100 H (80-98) fL MCH 35 H (27-31) pg MCHC 35 (32-36) % Plt Count 302 (150-400) K/uL Sodium 136 L (140-148) mmol/L Potassium 3.0 L (3.6-5.2) mmol/L Chloride 103 (100-108) mmol/L Carbon Dioxide 22 (21-32) mmol/L Anion Gap 14.0 (5.0-14.0) mmol/L BUN 8 (7-18) mg/dL Creatinine 0.9 (0.6-1.0) mg/dL Est Cr Clr Drug Dosing 51.41 mL/min Estimated GFR (MDRD) > 60 (>60) Glucose 97 (74-106) mg/dL Calcium 8.7 (8.5-10.1) mg/dL Magnesium 1.1 L (1.8-2.4) mg/dL Urine Color Yellow Urine Appearance Clear Urine pH 6.0 (4.5-8.0) Ur Specific [place] 1.010 (1.008-1.030) Urine Protein 30 H (NEGATIVE) mg/dL Urine Glucose (UA) Normal (NEGATIVE) mg/dL Urine Ketones Negative (NEGATIVE) mg/dL Urine Occult Blood Large (NEGATIVE) Urine Nitrite Negative (NEGATIVE) Urine Bilirubin Negative (NEGATIVE) Urine Urobilinogen Normal (NORMAL) mg/dL Ur Leukocyte Esterase Moderate (NEGATIVE) Urine RBC 0-5 (0-5) Urine WBC 5-10 H (0-5) Ur Epithelial Cells Few Amorphous Sediment Not seen Urine Bacteria Few Urine Mucus Not seen Result Diagrams: 07/08/17 05:30 07/08/17 05:30 *Q Meaningful Use (ADM) - VTE *Q VTE Criteria *Q: - VTE Risk Assess *Q Each Risk Factor Represents 1 Point: Age 41 - 59 years Total Score 1 Point Risk Factors: 1 Each Risk Factor Represents 2 Points: None Total Score 2 Point Risk Factors: 0 Each Risk Factor Represents 3 Points: None Total Score 3 Point Risk Factors: 0 Each Risk Factor Represents 5 Points: None Total Score 5 Point Risk Factors: 0 Venous Thromboembolism Risk Factor Score *Q: 1 - Stroke *Q Stroke Criteria *Q: - AMI *Q AMI Criteria *Q: - Problem List (1) Acute diarrhea SNOMED Code(s): 512581563 ICD Code: R19.7 - DIARRHEA, UNSPECIFIED Status: Acute Current Visit: Yes (2) Short bowel syndrome SNOMED Code(s): 70329110 ICD Code: K91.2 - POSTSURGICAL MALABSORPTION, NOT ELSEWHERE CLASSIFIED Status: Chronic Current Visit: Yes (3) Hypomagnesemia SNOMED Code(s): 347465108 ICD Code: E83.42 - HYPOMAGNESEMIA Status: Acute Current Visit: Yes (4) Hypokalemia SNOMED Code(s): 48690036 ICD Code: E87.6 - HYPOKALEMIA Status: Acute Current Visit: Yes (5) Bladder spasms Status: Acute Current Visit: Yes Problem List Initiated/Reviewed/Updated: Yes Orders Last 24hrs: Active Orders 24 hr Category Date Time Status Patient Status Manage Transfer [TRANSFER] Routine ADT 07/08/17 08:19 Ordered CLOSTRIDIUM DIFFICILE BY PCR [] Stat Lab 07/08/17 07:45 Uncollected CULTURE URINE [] Stat Lab 07/08/17 06:00 Received Magnesium Sulfate/Water [Magnesium Sulfate 2 GM in Med 07/08/17 06:15 Active Water 50 ML] 2 gm Premix Bag 1 bag IV ONETIME NS + KCl 20mEq/L [Normal Saline with 20 mEq KCl] 1,000 Med 07/08/17 06:15 Active ml IV ASDIRECTED Resuscitation Status Routine Resus Stat 07/08/17 08:22 Ordered Medication Orders Magnesium Sulfate 2 gm/ Premix 50 mls @ 12.5 mls/hr IV ONETIME ONE Stop: 07/08/17 10:14 Last Admin: 07/08/17 06:42 Dose: 12.5 mls/hr Potassium Chloride/Sodium Chloride (Normal Saline With 20 Meq Kcl) 1,000 mls @ 150 mls/hr IV ASDIRECTED KAREEN Last Admin: 07/08/17 06:26 Dose: 150 mls/hr Assessment/Plan Comment:: ASSESSMENT AND PLAN - Acute on chronic diarrhea - occurs in the setting of chronic diarrhea with her short bowel syndrome. Clostridium difficile testing this morning was negative. Diarrhea seems to have resolved after IV fluids were initiated. Abdominal cramping has improved with a single dose of pain medication in the emergency room. Abdomen is essentially benign at this time as far as the examination is concerned. -Continue gentle hydration -Restart Lomotil if needed -Pain control Hypokalemia - likely secondary to gastrointestinal losses. She will be receiving some replacement this morning and we will recheck this evening. -60 mEq of potassium via IV -Recheck potassium at 6 PM Hypomagnesemia - plan to replace throughout the day. Recent nephrolithiasis - no pain to raise concern for recurrence at this time. 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 She is interested in talking to the dietary folks about which foods are high in oxalate. -Dietary consult -Encourage hydration Maintenance issues - - DVT prophylaxis - ambulatory - GI prophylaxis - PPI - Nutrition - regular diet as tolerated - Siu catheter - not indicated CODE STATUS - full code Admission justification - patient will be referred observation status for hydration and electrolyte replacement Disposition - anticipate discharge to home tomorrow Primary care physician - Shannan Moore M.D.
[2017-07-08] MEDS ORDERED: Belladonna Alkaloids/Opium 16.2-30 MG Supp RECTAL PRN (08:39)
[2017-07-08] MEDS ORDERED: HYDROmorphone 0.5 MG/0.5 ML Syringe IVPUSH PRN (08:39)
[2017-07-08] MEDS ORDERED: Ondansetron 4 MG Tab.DIS PO PRN (08:39)
[2017-07-08] MEDS ORDERED: Levothyroxine 50 MCG Tab PO SCH (08:39)
[2017-07-08] MEDS ORDERED: HYDROmorphone 2 MG Tab PO PRN (08:39)
[2017-07-08] MEDS ORDERED: Sodium Chloride 0.9% 1,000 ML IV SCH (08:39)
[2017-07-08] MEDS ORDERED: ACIDOPH PARACASEI B LACTIS PO SCH (09:00)
[2017-07-08] MEDS ORDERED: buPROPion 150 MG Tab.ER PO SCH (09:00)
[2017-07-08] MEDS: Amylase/Lipase/Protease 12,000 Unit Cap.CR PO SCH ×3 (09:41→20:54)
[2017-07-08] MEDS: Levothyroxine 75 MCG Tab PO SCH (09:41)
[2017-07-08] MEDS: Pantoprazole 40 MG Tab.CR PO SCH (09:42)
[2017-07-08] MEDS: FLUoxetine 20 MG Cap PO SCH (09:42)
[2017-07-08] MEDS: Lactobacillus Rhamnosus GG (Probiotic) Cap PO SCH ×2 (09:42→20:54)
[2017-07-08] MEDS: Acetaminophen 325 MG Tab PO SCH ×3 (09:44→20:54)
[2017-07-08] MEDS: Potassium Chloride 20 MEQ, Lidocaine 1% 2 ML in Sodium Chloride 0.9% 100 ML IV SCH ×3 (09:46→14:09)
[2017-07-08] MEDS: Magnesium Sulfate/Water 2 GM in Premix Bag 1 BAG IV SCH ×3 (11:01→18:21)
[2017-07-08] MEDS ORDERED: Atropine/Diphenoxylate 0.025-2.5 MG Tab PO PRN (18:05)
[2017-07-09] MEDS: Acetaminophen 325 MG Tab PO SCH ×2 (03:08→07:54)
[2017-07-09 07:50] VITALS: BP 128/94
[2017-07-09] MEDS: Pantoprazole 40 MG Tab.CR PO SCH (07:52)
[2017-07-09] MEDS: Levothyroxine 75 MCG Tab PO SCH (07:53)
[2017-07-09] MEDS: Amylase/Lipase/Protease 12,000 Unit Cap.CR PO SCH (08:30)
[2017-07-09] MEDS: FLUoxetine 20 MG Cap PO SCH (08:30)
[2017-07-09] MEDS: Lactobacillus Rhamnosus GG (Probiotic) Cap PO SCH (08:30)
--- NOTE | 2017-07-09 10:11 | PCM.DCSUM1 ---
Discharge Summary - Hospital Course Brief History: Ms. Claudette Moody is a 57 year old woman - Discharge Data Discharge Date: 07/09/17 Discharge Disposition: Home, Self-Care 01 Condition: Fair - Discharge Diagnosis/Problem(s) (1) Dehydration SNOMED Code(s): 96724167 ICD Code: E86.0 - DEHYDRATION Status: Acute Current Visit: Yes (2) Hypomagnesemia SNOMED Code(s): 590212074 ICD Code: E83.42 - HYPOMAGNESEMIA Status: Acute Current Visit: Yes (3) Hypokalemia SNOMED Code(s): 49916831 ICD Code: E87.6 - HYPOKALEMIA Status: Acute Current Visit: Yes (4) Chronic diarrhea SNOMED Code(s): 319636779 ICD Code: K52.9 - NONINFECTIVE GASTROENTERITIS AND COLITIS, UNSPECIFIED Status: Acute Current Visit: Yes (5) Bladder spasms Status: Acute Current Visit: Yes (6) Short bowel syndrome SNOMED Code(s): 19499027 ICD Code: K91.2 - POSTSURGICAL MALABSORPTION, NOT ELSEWHERE CLASSIFIED Status: Chronic Current Visit: Yes - Patient Summary/Data Consults: Consultations 07/08/17 08:39 Consult to Security Sergeant [CONS] Routine Comment: Physician Instructions: Quantity: Reason for Consult: short bowel syndrome Special Instructions: please provide info about oxalate containing foods and protein sources Hospital Course: Ms. Claudette Moody is a 57-year-old woman with a known history of short-bowel syndrome. She has had recent difficulty with nephrolithiasis and underwent urologic procedure last week for removal of 3 kidney stones. Stents were placed at that time and she's had some ongoing difficulty with bladder spasm. She was also told to drink a large amount of fluid, with this, he has complicated her short-bowel syndrome and she has developed profuse watery diarrhea. On evaluation in the emergency department was found to have significantly low potassium and magnesium. She was admitted to the hospital, given IV fluids for hydration as well as supplemental potassium and magnesium. By the following morning felt significantly improved after hydration and replacement of potassium and magnesium. Diarrhea had improved but not totally resolved. She will be discharged home on her usual medications, activity will be as tolerated. She already has follow-up appointment pending with her primary care provider as well as nephrology. - Patient Instructions Diet: Usual Diet as Tolerated Activity: As Tolerated Other/Special Instructions: Patient already has follow-up appointment scheduled with primary care provider for July 14. - Discharge Plan Prescriptions/Med Rec: Belladonna/Opium [Belladonna-Opium 16.2-30] 1 supp RECTAL Q6H PRN #12 supp PRN Reason: Spasms Home Medications: Home Meds Cetirizine HCl [Zyrtec] 10 mg PO ASDIRECTED 03/22/13 [History] Vit D3/Folic Acid/B2/B6/B12 [Folgard Tablet] 1 each PO DAILY 03/22/13 [History] Vitamin B Complex & Vit C No.4 [Super B Complex] 150 mg PO DAILY 10/02/14 [ History] Levothyroxine [Synthroid] 75 mcg PO ACBREAKFAST 09/16/15 [History] Amylase/Lipase/Protease [Creon DR 12,000 Units] 1 each PO TID 09/07/16 [History] Diphenoxylate HCl/Atropine [Lomotil] 1 tab PO TID PRN 09/07/16 [History] [place]-3 Fatty Acids [Fish Oil] 300 mg PO DAILY 09/07/16 [History] Omeprazole 20 mg PO BIDAC 09/07/16 [History] Cyanocobalamin (Vitamin B12) [Vitamin B12] 1,000 mcg PO DAILY 09/30/16 [History] Magnesium Oxide 1,200 mg PO BID 09/30/16 [History] Potassium Chloride [K-Tab ER] 40 meq PO DAILY 09/30/16 [History] L.acidoph,Paracasei, B.lactis [Probiotic] 1 tab PO DAILY 10/09/16 [History] Multivitamin with Minerals [Multiple Vitamin] 1 tab PO DAILY 10/09/16 [History] Acetaminophen [Tylenol] 650 mg PO Q6H #100 tablet 10/15/16 [Rx] Cyclobenzaprine [Flexeril] 10 mg PO Q8H PRN #30 tablet 10/15/16 [Rx] FLUoxetine [PROzac] 20 mg PO DAILY cap 10/15/16 [Rx] HYDROmorphone [Dilaudid] 2 - 4 mg PO Q4H PRN #30 tablet 10/15/16 [Rx] Magnesium Hydroxide [Milk of Magnesia] 30 ml PO DAILY PRN #0 cup 10/15/16 [Rx] Ibuprofen [Advil] 600 mg PO Q6H PRN 07/08/17 [History] Ondansetron [Zofran ODT] 4 mg PO Q4HR PRN 07/08/17 [History] buPROPion [Wellbutrin] 75 mg PO BID 07/08/17 [History] oxyCODONE 5 mg PO Q4HR PRN 07/08/17 [History] traMADol [Ultram] 50 mg PO Q6H PRN 07/08/17 [History] Belladonna/Opium [Belladonna-Opium 16.2-30] 1 supp RECTAL Q6H PRN #12 supp 07/09 [Rx] Referrals: Shannan Bazzi PA [Primary Care Provider] - - Patient Data Vitals - Most Recent: Last Vital Signs Temp 97.7 F 07/09/17 07:48 Pulse 79 07/09/17 03:08 Resp 18 07/09/17 07:48 BP 128/94 H 07/09/17 07:48 Pulse Ox 97 07/09/17 03:08 Weight - Most Recent: 134 lb I&O - Last 24 hours: Intake & Output 07/08/17 07/09/17 07/09/17 22:59 06:59 14:59 Intake Total 1887 791 Balance 1887 791 Lab Results - Last 24 hrs: Laboratory Results - last 24 hr 07/08/17 07/09/17 Range/Units 18:00 08:39 Sodium 137 L (140-148) mmol/L Potassium 3.9 4.0 (3.6-5.2) mmol/L Chloride 107 (100-108) mmol/L Carbon Dioxide 27 (21-32) mmol/L Anion Gap 7.0 (5.0-14.0) mmol/L BUN 6 L (7-18) mg/dL Creatinine 0.8 (0.6-1.0) mg/dL Est Cr Clr Drug Dosing 57.90 mL/min Estimated GFR (MDRD) > 60 (>60) Glucose 91 (74-106) mg/dL Calcium 8.3 L (8.5-10.1) mg/dL Magnesium 1.7 L D (1.8-2.4) mg/dL Med Orders - Current: Current Medications Acetaminophen (Tylenol) 650 mg PO Q6H [facility] Last Admin: 07/09/17 07:54 Dose: 650 mg Lipase/Protease/Amylase (Janet Espinosa 12,000 Units) 1 cap PO TID [facility] Last Admin: 07/09/17 08:30 Dose: 1 cap Belladonna Alkaloids/Opium (B & O Supprettes No. 15a) 1 supp RECTAL Q6H PRN PRN Reason: Spasms Bupropion HCl (Wellbutrin) 75 mg PO BID [facility] Last Admin: 07/09/17 08:31 Dose: 75 mg Diphenoxylate HCl/Atropine (Lomotil 0.025-2.5 Mg) 1 tab PO TID PRN PRN Reason: Diarrhea Last Admin: 07/08/17 18:15 Dose: 1 tab Fluoxetine HCl (Prozac) 20 mg PO DAILY [facility] Last Admin: 07/09/17 08:30 Dose: 20 mg Hydromorphone HCl (Dilaudid) 2 - 4 mg PO Q4H PRN PRN Reason: Pain Hydromorphone HCl (Dilaudid) 0.5 - 1 mg IVPUSH Q2H PRN PRN Reason: Pain (severe 7-10) Sodium Chloride (Normal Saline) 1,000 mls @ 50 mls/hr IV ASDIRECTED [facility] Last Admin: 07/08/17 13:00 Dose: 50 mls/hr Lactobacillus Rhamnosus (Culturelle) 1 cap PO BID [facility] Last Admin: 07/09/17 08:30 Dose: 1 cap Levothyroxine Sodium (Levothyroxine) 75 mcg PO ACBREAKFAST [facility] Last Admin: 07/09/17 07:53 Dose: 75 mcg Ondansetron HCl (Zofran Odt) 4 mg PO Q6H PRN PRN Reason: Nausea able to take PO Pantoprazole Sodium (Protonix) 40 mg PO ACBREAKFAST [facility] Last Admin: 07/09/17 07:52 Dose: 40 mg Discontinued Medications Hydromorphone HCl (Dilaudid) 1 mg IVPUSH ONETIME ONE Stop: 07/08/17 05:09 Last Admin: 07/08/17 05:19 Dose: 1 mg Lactated Ringer's (Ringers, Lactated) 1,000 mls @ 1,000 mls/hr IV BOLUS ONE Stop: 07/08/17 06:07 Last Admin: 07/08/17 05:15 Dose: 1,000 mls/hr Magnesium Sulfate 2 gm/ Premix 50 mls @ 12.5 mls/hr IV ONETIME ONE Stop: 07/08/17 10:14 Last Admin: 07/08/17 06:42 Dose: 12.5 mls/hr Potassium Chloride/Sodium Chloride (Normal Saline With 20 Meq Kcl) 1,000 mls @ 150 mls/hr IV ASDIRECTED [facility] Last Admin: 07/08/17 06:26 Dose: 150 mls/hr Magnesium Sulfate 2 gm/ Premix 50 mls @ 25 mls/hr IV Q4H [facility] Stop: 07/08/17 20:59 Last Admin: 07/08/17 18:21 Dose: 25 mls/hr Potassium Chloride 20 meq/Lidocaine HCl 2 ml/ Sodium Chloride 112 mls @ 56 mls/ hr IV Q2H [facility] Stop: 07/08/17 15:59 Last Admin: 07/08/17 14:09 Dose: 56 mls/hr Ketorolac Tromethamine (Toradol) 30 mg IVPUSH ONETIME ONE Stop: 07/08/17 05:09 Last Admin: 07/08/17 05:15 Dose: 30 mg *Q Meaningful Use (DIS) - VTE *Q VTE Criteria *Q: - Stroke *Q Stroke Criteria *Q: - AMI *Q AMI Criteria *Q:
== END 2017-07-09 10:38 | disposition home or self-care (01) ==
LOC: JP.ED 04:31 → JP.ICU 08:19
PROVIDERS: ADMIT Internal Medicine; ATTEND Internal Medicine
DX: E86.0 Dehydration (principal); E83.42 Hypomagnesemia; E87.6 Hypokalemia; K52.9 Noninfective gastroenteritis and colitis, unspecified; K91.2 Postsurgical malabsorption, not elsewhere classified; G47.30 Sleep apnea, unspecified; K21.9 Gastro-esophageal reflux disease without esophagitis; E03.9 Hypothyroidism, unspecified; Z79.899 Other long term (current) drug therapy; Z88.1 Allergy status to other antibiotic agents; Z91.040 Latex allergy status; Z88.8 Allergy status to other drugs, medicaments and biological substances; Z99.89 Dependence on other enabling machines and devices
CPT/HCPCS: 36415; 80048; 81001; 83735; 84132; 85027; 87086; 87493; 96361; 96365; 96366; 96375; 99285; A9270; J1170; J1885; J3475; J3480; J7030; J7040; J7120; 96367; G0378

== ENCOUNTER 2017-11-02 05:43 | Emergency (ER) | payer BC ==
[2017-11-02] MEDS ORDERED: Sodium Chloride 0.9% 10 ML Syringe FLUSH PRN (06:11)
[2017-11-02] MEDS ORDERED: Ondansetron 4 MG/2 ML SDV IVPUSH ONE (06:11)
[2017-11-02] MEDS ORDERED: Lactated Ringers 1,000 ML IV ONE (06:11)
--- NOTE | 2017-11-02 06:14 | EDM.PDOC ---
<OfficerNeptali - Last Filed: 11/02/17 06:11> ED HPI GENERAL MEDICAL PROBLEM - General Chief Complaint: Abdominal Pain Stated Complaint: VOMITING/PAIN Time Seen by Provider: 11/02/17 06:07 Source of Information: Reports: Patient, RN Notes Reviewed History Limitations: Reports: No Limitations - History of Present Illness INITIAL COMMENTS - FREE TEXT/NARRATIVE: 57-year-old female presents to the emergency department with complaint of nausea vomiting, she has a history of desmoid tumor status post resection also has history of short gut syndrome. She states with the heat yesterday she was consuming a large amount of fluid at this triggered diarrhea and then nausea and vomiting started early this morning and she's been dry heaving for several hours. She is not had any fevers - Related Data Allergies Allergy/AdvReac Type Severity Reaction Status Date / Time Latex, Natural Rubber Allergy Rash Verified 07/08/17 04:53 Home Meds: Home Meds Cetirizine HCl [Zyrtec] 10 mg PO DAILY 03/22/13 [History] Vit D3/Folic Acid/B2/B6/B12 [Folgard Tablet] 1 each PO DAILY 03/22/13 [History] Vitamin B Complex & Vit C No.4 [Super B Complex] 150 mg PO DAILY 10/02/14 [ History] Levothyroxine [Synthroid] 75 mcg PO ACBREAKFAST 09/16/15 [History] Diphenoxylate HCl/Atropine [Lomotil] 1 tab PO QID 09/07/16 [History] [place]-3 Fatty Acids [Fish Oil] 300 mg PO DAILY 09/07/16 [History] Omeprazole 20 mg PO BIDAC 09/07/16 [History] Cyanocobalamin (Vitamin B12) [Vitamin B12] 1,000 mcg PO DAILY 09/30/16 [History] Magnesium Oxide 1,200 mg PO BID 09/30/16 [History] Multivitamin with Minerals [Multiple Vitamin] 1 tab PO DAILY 10/09/16 [History] FLUoxetine [PROzac] 20 mg PO DAILY cap 10/15/16 [Rx] Ondansetron [Zofran ODT] 4 mg PO Q4HR PRN 07/08/17 [History] buPROPion [Wellbutrin] 75 mg PO BID 07/08/17 [History] Cyanocobalamin (Vitamin B-12) [Cyanocobalamin Injection] 1,000 mcg IJ WEEKLY [History] Doxycycline [Doxycycline Hyclate] 100 mg PO ASDIRECTED 11/02/17 [History] Psyllium Husk/Aspartame [Fiber Therapy Powder] 1 tsp PO DAILY 11/02/17 [History] Past Medical History HEENT History: Reports: Allergic Rhinitis, Impaired Vision Other HEENT History: wears glasses Cardiovascular History: Reports: Other (See Below) Other Cardiovascular History: low blood pressure Respiratory History: Reports: Sleep Apnea Other Respiratory History: environmental. 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 Psychiatric History: Reports: Depression Endocrine/Metabolic History: Reports: Hypothyroidism Hematologic History: Reports: B12 Deficiency Dermatologic History: Reports: Other (See Below) Other Dermatologic History: keloid - Infectious Disease History Infectious Disease History: Reports: Chicken Pox, Measles - Past Surgical History HEENT Surgical History: Reports: Oral Surgery GI Surgical History: Reports: Cholecystectomy, Colon, EGD, Small Bowel, Other ( See Below) Other GI Surgeries/Procedures: abdomenal surgery October 2016 Female Surgical History: Reports: Breast Biopsy, Section, Oophorectomy, Salpingo-Oophorectomy, Tubal Ligation, Ureteral Stent Other Female Surgeries/Procedures: Ureteral stents that were place were removed on wednesday. Social & Family History - Family History Family Medical History: Noncontributory Cardiac: Reports: CAD - Tobacco Use Smoking Status *Q: Never Smoker - Caffeine Use Caffeine Use: Reports: Soda Other Caffeine Use: diet pop - Recreational Drug Use Recreational Drug Use: No ED ROS GENERAL - Review of Systems Review Of Systems: See Below Constitutional: Denies: Fever, Chills HEENT: Reports: No Symptoms Respiratory: Reports: No Symptoms Cardiovascular: Reports: No Symptoms GI/Abdominal: Reports: Abdominal Pain, Diarrhea, Nausea, Vomiting : Reports: No Symptoms Musculoskeletal: Reports: No Symptoms Skin: Reports: No Symptoms Neurological: Reports: No Symptoms ED EXAM, GI/ABD - Physical Exam Exam: See Below Exam Limited By: No Limitations General Appearance: Alert, Mild Distress Eyes: Bilateral: Normal Appearance Head: Atraumatic, Normocephalic Neck: Normal Inspection, Supple, Non-Tender, Full Range of Motion Respiratory/Chest: No Respiratory Distress, Lungs Clear, Normal Breath Sounds, No Accessory Muscle Use Cardiovascular: Regular Rate, Rhythm, No Murmur GI/Abdominal Exam: Soft, Non-Tender Back Exam: Normal Inspection, Full Range of Motion. No: CVA Tenderness (R), CVA Tenderness (L) Extremities: Normal Inspection, No Pedal Edema Course - Vital Signs Last Recorded V/S: Last Vital Signs Temp 36.6 C 11/02/17 07:51 Pulse 96 11/02/17 07:51 Resp 16 11/02/17 07:51 BP 121/81 11/02/17 07:51 Pulse Ox 99 11/02/17 07:51 - Orders/Labs/Meds Orders: Active Orders 24 hr Category Date Time Status Peripheral IV Care [RC] . DIRECTED Care 11/02/17 06:11 Active Magnesium Sulfate/Water [Magnesium Sulfate 2 GM in Med 11/02/17 07:30 Active Water 50 ML] 2 gm Premix Bag 1 bag IV ONETIME Sodium Chloride 0.9% [Normal Saline] 1,000 ml Med 11/02/17 07:30 Active IV ASDIRECTED Sodium Chloride 0.9% [Saline Flush] Med 11/02/17 06:11 Active 10 ml FLUSH ASDIRECTED PRN Peripheral IV Insertion Adult [OM.PC] Urgent Oth 11/02/17 06:10 Ordered Medication Orders Magnesium Sulfate 2 gm/ Premix 50 mls @ 25 mls/hr IV ONETIME ONE Stop: 11/02/17 09:29 Last Admin: 11/02/17 07:31 Dose: 25 mls/hr Sodium Chloride (Normal Saline) 1,000 mls @ 300 mls/hr IV ASDIRECTED KAREEN Last Admin: 11/02/17 07:24 Dose: 300 mls/hr Sodium Chloride (Saline Flush) 10 ml FLUSH ASDIRECTED PRN PRN Reason: Keep Vein Open Last Admin: 11/02/17 06:17 Dose: 10 ml Labs: Laboratory Tests 11/02/17 11/02/17 Range/Units 06:00 06:00 WBC 4.4 L (4.5-11.0) K/uL RBC 4.03 (3.30-5.50) M/uL Hgb 14.7 D (12.0-15.0) g/dL Hct 41.9 (36.0-48.0) % MCV 104 H (80-98) fL MCH 37 H (27-31) pg MCHC 35 (32-36) % Plt Count 245 (150-400) K/uL Neut % (Auto) 49 (36-66) % Lymph % (Auto) 44 (24-44) % Clinch % (Auto) 5 (2-6) % Eos % (Auto) 1 L (2-4) % Baso % (Auto) 1 (0-1) % Sodium 145 (140-148) mmol/L Potassium 3.6 (3.6-5.2) mmol/L Chloride 109 H (100-108) mmol/L Carbon Dioxide 12 L D (21-32) mmol/L Anion Gap 27.6 H (5.0-14.0) mmol/L BUN 9 (7-18) mg/dL Creatinine 0.9 (0.6-1.0) mg/dL Est Cr Clr Drug Dosing 51.41 mL/min Estimated GFR (MDRD) > 60 (>60) Glucose 103 (74-106) mg/dL Calcium 8.9 (8.5-10.1) mg/dL Magnesium 1.6 L (1.8-2.4) mg/dL Total Bilirubin 1.0 (0.2-1.0) mg/dL AST 19 (15-37) U/L ALT 60 (12-78) U/L Alkaline Phosphatase 76 (46-116) U/L Total Protein 7.8 (6.4-8.2) g/dL Albumin 3.8 (3.4-5.0) g/dL Globulin 4.0 H (2.3-3.5) g/dL Albumin/Globulin Ratio 1.0 L (1.2-2.2) Meds: Medications Generic Name Dose Route Start Last Admin Trade Name Freq PRN Reason Stop Dose Admin Magnesium Sulfate 2 gm/ Premix 50 mls @ 25 mls/hr 11/02/17 07:30 11/02/17 07: 31 IV 11/02/17 09:29 25 mls/hr ONETIME ONE Administration Sodium Chloride 1,000 mls @ 300 mls/hr 11/02/17 07:30 11/02/17 07:24 Normal Saline IV 300 mls/hr ASDIRECTED KAREEN Administration Sodium Chloride 10 ml 11/02/17 06:11 11/02/17 06:17 Saline Flush FLUSH 10 ml ASDIRECTED PRN Administration Keep Vein Open Discontinued Medications Generic Name Dose Route Start Last Admin Trade Name Sridhar PRN Reason Stop Dose Admin Lactated Ringer's 1,000 mls @ 999 mls/hr 11/02/17 06:11 11/02/17 06:16 Ringers, Lactated IV 11/02/17 07:11 999 mls/hr BOLUS ONE Administration Ondansetron HCl 4 mg 11/02/17 06:11 11/02/17 06:17 Zofran IVPUSH 11/02/17 06:12 4 mg ONETIME ONE Administration Departure - Departure Disposition: Home, Self-Care 01 Clinical Impression: Dehydration, Hypomagnesemia, Desmoid tumor - Discharge Information Referrals: Shannan Bazzi PA [Primary Care Provider] - Forms: ED Department Discharge Care Plan Goals: push fluids rtc if problems, cont same meds, zoforan subling 4 mg q6h prn for nauisea. - My Orders Last 24 Hours: My Active Orders 11/02/17 07:30 Sodium Chloride 0.9% [Normal Saline] 1,000 ml IV ASDIRECTED - Assessment/Plan Last 24 Hours: My Active Orders 11/02/17 07:30 Sodium Chloride 0.9% [Normal Saline] 1,000 ml IV ASDIRECTED <Caren Guy - Last Filed: 11/02/17 09:16> ED HPI GENERAL MEDICAL PROBLEM Denies Pain Score (Numeric/FACES): 0 Course - Re-Assessments/Exams Free Text/Narrative Re-Assessment/Exam: 11/02/17 09:13 pt was given 2 liters of fluid. She was given 2 gm of magnesium and is feeling much better, She states the nausea has pssed. 11/02/17 09:14 Departure - Departure Time of Disposition: 09:14 Condition: Fair
[2017-11-02] MEDS ORDERED: Magnesium Sulfate/Water 2 GM in Premix Bag 1 BAG IV ONE ×2 (06:52→07:30)
[2017-11-02] MEDS ORDERED: Sodium Chloride 0.9% 1,000 ML IV SCH (07:30)
[2017-11-02 07:52] VITALS: BP 121/81
== END 2017-11-02 09:34 | disposition home or self-care (01) ==
LOC: JP.ED 05:43
DX: E86.0 Dehydration (principal); E83.42 Hypomagnesemia; D48.1 Neoplasm of uncertain behavior of connective and other soft tissue; E03.9 Hypothyroidism, unspecified; Z79.899 Other long term (current) drug therapy; Z91.040 Latex allergy status
CPT/HCPCS: 36415; 80053; 83735; 85025; 96361; 96365; 96366; 96375; 99284; J2405; J3475; J7030; J7050; J7120